=== PATIENT | female | born 1930 | race Caucasian/White ===

== ENCOUNTER → 2017-06-27 06:38 | Outpatient (CLI) | payer MEDICARE ==
[2016-05-20 10:39] VITALS: BMI 22.7
[~2017-06-27 06:38] MED LIST: MACROBID100 MG PO; SYNTHROID25 MCG PO
== END | disposition home or self-care (01) ==
LOC: D.CT 06:38
DX: Z02.83 Encounter for blood-alcohol and blood-drug test (principal)

== ENCOUNTER 2018-06-07 15:23 | Inpatient (IN) | payer MEDICARE ==
[~2018-06-07] VITALS: Ht 165.1 cm; Wt 48.5 kg
--- NOTE | ~2018-06-07 | MORECARE ---
CASE MANAGEMENT DISCHARGE SUMMARY PATIENT: NIKKI MADRID UNIT: [id number] ADM DATE: 06/08/18 AGE: 87 : [birth year] SEX: F ROOM/BED: D.[facility] AUTHOR: TE SILVA PHYSICIAN: REFERRING PHYSICIAN: MIRIAM VILLA MD DATE OF SERVICE: 06/09/18 Discharge Plan Patient Name: NIKKI MADRID Facility: [facility]:[place] : 1930 Planned Disposition: Inpatient Rehab Anticipated Discharge Date: Discharge Date: Expected LOS: Initial Reviewer: [email or web address] Initial Review Date: 06/07/2018 Generated: 06/09/18 12:48 pm Patient Name: NIKKI MADRID Page 84550 at 1148 All edits/amendments must be made on the electronic document DICTATION DATE: 06/09/18 1148 VISUAL DISPLAY ASSOCIATE: ROSSANA 06/09/18 1148 RPT#: [id number] DC DATE: STATUS: ADM IN [address] [place] [address] END OF REPORT
--- NOTE | ~2018-06-07 | MORECARE ---
CASE MANAGEMENT DISCHARGE SUMMARY PATIENT: NIKKI MADRID UNIT: [id number] ADM DATE: 06/08/18 AGE: 87 : [birth year] SEX: F ROOM/BED: D.2211 AUTHOR: TE SILVA PHYSICIAN: REFERRING PHYSICIAN: MIRIAM VILLA MD DATE OF SERVICE: 06/09/18 Discharge Plan Patient Name: NIKKI MADRID Facility: [facility]:[place] : 1930 Planned Disposition: Inpatient Rehab Anticipated Discharge Date: Discharge Date: Expected LOS: Initial Reviewer: [email or web address] Initial Review Date: 06/07/2018 Generated: 06/09/18 12:56 pm Comments DCP- Discharge Planning Updated by [email or web address]: Carrie Gomez on 06/09/18 10:[address] Patient Name: NIKKI MADRID Admission Status: ER Accout number: [id number] Admission Date: 06-08-2018 : 1930 Admission Diagnosis:DISP FX OF LATERAL CONDYLE OF LEFT FEMUR, INIT FOR CLOS Attending: MIRIAM VILLA Current LOS: 1 Anticipated DC Date: Planned Disposition: Inpatient Rehab Primary Insurance: MEDICARE A & B Discharge Planning Comments: CM met with patient to assess discharge planning needs. Patient lives with her brother (who is in the hospital at this time) She states that she he cooks her meals and grocery shops for her. He also takes her to her drs appts. She does have senior helpers who come every Tuesday and help her with showering. She plans to go to inpatient rehab today. There are 3 steps to enter her home. She has a walker, wheelchair and a shower chair at home. CM will continue to follow and assist with dc planning as needed. I spoke with Beatris with Inpatient rehab. She stated that they will accept her today, if ok my MD. Patient will need to be admitted by 1400 today to go to inpatient rehab. Automatic Presser: Carrie Gomez DCPIA - Discharge Planning Initial Assessment Updated by [email or web address]: Carrie Gomez on 06/09/18 11:49 am * Is the patient Alert and Oriented? Yes * PCP PATRICK * Pharmacy [facility] * Preadmission Environment Home with Family * ADLs Partial Dependent * Partial ADLs (Assistance needed) Bathing Medication Management * Equipment Rolling Walker Shower Chair Walker Wheelchair * List name and contact numbers for known caregivers / representatives who currently or will assist patient after discharge: DEEPIKA TORREZ (BROTHER) [phone] * Verbal permission to speak to the caregivers and representatives has been obtained from the patient. N/A * Community resources currently utilized [employer] * Please name any agencies selected above. [facility] COMES EVERY TUESDAY TO SHOWER PATIENT * Additional services required to return to the preadmission environment? Yes * Can the patient safely return to the preadmission environment? No * Has this patient been hospitalized within the prior 30 days at any hospital? No Last DP export: 06/09/18 10:48 Patient Name: NIKKI MADRID Page 44805 at 1156 All edits/amendments must be made on the electronic document DICTATION DATE: 06/09/18 1156 SUPERVISOR FINISH END: ROSSANA 06/09/18 1156 RPT#: [id number] DC DATE: STATUS: ADM IN [facility] [address] [place] [address] END OF REPORT
--- NOTE | ~2018-06-07 | MORECARE ---
CASE MANAGEMENT DISCHARGE SUMMARY PATIENT: NIKKI MADRID UNIT: [id number] ADM DATE: 06/08/18 AGE: 87 : [birth year] SEX: F ROOM/BED: D.2211 AUTHOR: TE SILVA PHYSICIAN: REFERRING PHYSICIAN: MIRIAM VILLA MD DATE OF SERVICE: 06/12/18 Discharge Plan Patient Name: NIKKI MADRID Facility: [facility]:[place] : 1930 Planned Disposition: Inpatient Rehab Anticipated Discharge Date: Discharge Date: 06/09/2018 Expected LOS: 0 Initial Reviewer: [email or web address] Initial Review Date: 06/07/2018 Generated: 06/12/18 9:10 am Comments DCP- Discharge Planning Updated by [email or web address]: Carrie Gomez on 06/09/18 10:[address] Patient Name: NIKKI MADRID Admission Status: ER Accout number: [id number] Admission Date: 06-08-2018 : 1930 Admission Diagnosis:DISP FX OF LATERAL CONDYLE OF LEFT FEMUR, INIT FOR CLOS Attending: MIRIAM VILLA Current LOS: 1 Anticipated DC Date: Planned Disposition: Inpatient Rehab Primary Insurance: MEDICARE A & B Discharge Planning Comments: CM met with patient to assess discharge planning needs. Patient lives with her brother (who is in the hospital at this time) She states that she he cooks her meals and grocery shops for her. He also takes her to her drs appts. She does have senior helpers who come every Tuesday and help her with showering. She plans to go to inpatient rehab today. There are 3 steps to enter her home. She has a walker, wheelchair and a shower chair at home. CM will continue to follow and assist with dc planning as needed. I spoke with Beatris with Inpatient rehab. She stated that they will accept her today, if ok my MD. Patient will need to be admitted by 1400 today to go to inpatient rehab. Meat Team Lead: Carrie Gomez DCPIA - Discharge Planning Initial Assessment Updated by [email or web address]: Carrie Gomez on 06/09/18 11:49 am * Is the patient Alert and Oriented? Yes * PCP PATRICK * Pharmacy [facility] * Preadmission Environment Home with Family * ADLs Partial Dependent * Partial ADLs (Assistance needed) Bathing Medication Management * Equipment Rolling Walker Shower Chair Walker Wheelchair * List name and contact numbers for known caregivers / representatives who currently or will assist patient after discharge: DEEPIKA TORREZ (BROTHER) [phone] * Verbal permission to speak to the caregivers and representatives has been obtained from the patient. N/A * Community resources currently utilized [employer] [facility] * Please name any agencies selected above. [facility] COMES EVERY TUESDAY TO SHOWER PATIENT * Additional services required to return to the preadmission environment? Yes * Can the patient safely return to the preadmission environment? No * Has this patient been hospitalized within the prior 30 days at any hospital? No Last DP export: 06/09/18 10:56 Patient Name: NIKKI MADRID Page 54859 at 0810 All edits/amendments must be made on the electronic document DICTATION DATE: 06/12/18808 HTML DEVELOPER: ROSSANA 06/12/18808 RPT#: [id number] DC DATE:06/09/18 STATUS: DIS IN [facility] [address] [place] [address] END OF REPORT
[2018-06-07 19:04] LABS: ALBUMIN 3.7 g/dL (3.4-5.0); ANION GAP 11.7 mmol/L (8-16); BILIRUBIN - TOTAL 0.72 mg/dL (0.2-1.3); CALCIUM 9.1 mg/dL (8.5-10.1); CARBON DIOXIDE 28.8 mmol/L (21.0-32.0); CREATININE - SERUM 0.8 mg/dL (0.6-1.3); POTASSIUM - SERUM 4.5 mmol/L (3.5-5.1); PROTEIN - SERUM 7.5 g/dL (6.4-8.2)
[2018-06-07 19:07] LABS: BASOPHILS 0.1 % (0-2); EOSINOPHILS 0.2 % (0-7); HEMATOCRIT 42.2 % (36.0-48.0); IMMATURE GRANULOCYTES 0.3 % (0-5); LYMPHOCYTES 7.9 % (15-50); MCH 29.2 pg (26.0-34.0); MCHC 33.2 g/dL (31.0-37.0); MCV 87.9 fL (80.0-100.0); MEAN PLATELET VOLUME 10.5 fL (7.4-10.4); MONOCYTES 8.8 % (2-11); NEUTROPHILS 82.7 % (40-80); PLATELET COUNT 197 10x3/uL (130-400); RDW 13.9 % (11.5-14.5)
[2018-06-07 21:47] VITALS: BP 145/75
[2018-06-07 23:41] VITALS: BP 145/75; BMI 17.8
[2018-06-08 05:11] VITALS: BP 163/70
[2018-06-08 06:18] LABS: BASOPHILS 0.2 % (0-2); HEMATOCRIT 37.7 % (36.0-48.0); HEMOGLOBIN 12.3 g/dL (12-16); IMMATURE GRANULOCYTES 0.2 % (0-5); LYMPHOCYTES 12.3 % (15-50); MCH 29.1 pg (26.0-34.0); MCHC 32.6 g/dL (31.0-37.0); MCV 89.1 fL (80.0-100.0); MEAN PLATELET VOLUME 10.8 fL (7.4-10.4); MONOCYTES 12.8 % (2-11); NEUTROPHILS 73.5 % (40-80); PLATELET COUNT 163 10x3/uL (130-400); RBC 4.23 10x6/uL (4.00-5.40); RDW 14.2 % (11.5-14.5)
[2018-06-08 06:28] LABS: WBC 9.7 10x3/uL (4.8-10.8)
[2018-06-08 07:06] LABS: ALBUMIN 3.1 g/dL (3.4-5.0); ALKALINE PHOSPHATASE 86 U/L (46-116); ALT (SGPT) 23 U/L (10-68); BILIRUBIN - TOTAL 0.73 mg/dL (0.2-1.3); CALC OSMOLALITY 285 mosm/kg (275-300); CALCIUM 8.6 mg/dL (8.5-10.1); CARBON DIOXIDE 25.1 mmol/L (21.0-32.0); CHLORIDE - SERUM 107 mmol/L (98-107); CREATININE - SERUM 0.7 mg/dL (0.6-1.3); GLUCOSE 85 mg/dL (74-106); POTASSIUM - SERUM 3.9 mmol/L (3.5-5.1); PROTEIN - SERUM 6.4 g/dL (6.4-8.2); SODIUM 142 mmol/L (136-145); UREA NITROGEN 25 mg/dL (7-18); eGFR NON AFRICAN AMERICAN 83 mL/min (90-120)
[2018-06-08 09:10] VITALS: BP 170/86
[2018-06-08 10:09] VITALS: BMI 17.8
[2018-06-08 10:26] VITALS: Ht 165.1 cm; Wt 48.5 kg
[2018-06-08 12:45] VITALS: BP 166/70
[2018-06-08 16:45] VITALS: BP 149/73
[2018-06-08 21:17] VITALS: BP 141/58
[2018-06-09 05:01] VITALS: BP 112/83
[2018-06-09 08:43] VITALS: BP 168/85
[2018-06-09] MEDS ORDERED: ZOFRAN ODT4 MG/UDTAB PO (12:00)
[2018-06-09] MEDS ORDERED: HYDROCODON-ACE1 EAC7 PO (12:00)
[2018-06-09 12:30] VITALS: BP 183/83
== END 2018-06-09 14:34 | DRG 534 ==
LOC: D.ER 15:23 → D.EDHOLD 17:50 → OBSVTIME 17:51 → D.MS 19:57
PROVIDERS: Family Medicine
DX: S72.422A Displaced fracture of lateral condyle of left femur, initial encounter for closed fracture (principal); N39.0 Urinary tract infection, site not specified; W18.30XA Fall on same level, unspecified, initial encounter; E03.9 Hypothyroidism, unspecified; R01.1 Cardiac murmur, unspecified; Z87.891 Personal history of nicotine dependence

== ENCOUNTER 2018-06-09 13:55 | Inpatient (IN) | payer MEDICARE ==
[~2018-06-09] VITALS: Ht 165.1 cm; Wt 47.6 kg
--- NOTE | ~2018-06-09 | RHP ---
PATIENT: NIKKI MADRID MEDICAL RECORD: [id number] ACCOUNT: [id number] LOCATION:[facility] : [birth year] ADMISSION DATE: 06/09/18 REHABILITATION HISTORY AND PHYSICAL EXAMINATION POST ADMISSION PHYSICIAN EXAMINATION POST-ADMISSION PHYSICAL EXAMINATION AND HISTORY AND PHYSICAL DATE OF ADMISSION: 06/09/2018 ADMITTING DIAGNOSIS: Fracture in lateral aspect of distal femoral metaphysis. HISTORY OF PRESENT ILLNESS: The patient is a very friendly elderly 87-year-old female patient, who presents secondary to an orthopedic condition of fracture in the left femur. The patient apparently arrived in the Emergency Room on 06/07 complaining of left knee pain that occurred on 06/06 while trying to help her brother who had fallen. The patient actually fell and injured her left knee. She denies any other injuries such as a head injury, headache, hip or other type of joint pain. The patient accidentally fell and injured her left knee. CT showed a fracture in the lateral aspect of the distal femoral metaphysis, degenerative changes, a small suprapatellar effusion. She was admitted for orthopedic surgery. Ortho felt that she did not require any type of operative intervention at this time as it would be difficult for her to have any type of surgery with her age. She has been fitted with a hinged knee brace, set at 0 and pursue early mobilization with physical therapy. Previously, she lived with her brother who is also in the hospital at this time. States that she is independent for most ADLs and mobility, but he cooks her meals and grocery shops for her. He also takes her to her doctor's appointment. She does have senior helpers who come Tuesday and help her with showering. There are 3 steps to get into her house. She has a walker, wheelchair, and shower chair at home. Currently, she is mod assist to max assist for ADLs and mobility. She has limited range of motion secondary to the hinged brace. She is moderate assist for sit to stand and bed to chair. She has poor balance. Barriers to discharge include a recent fall, cardiac monitoring, her brother being hospitalized. She is underweight and has inadequate calorie and protein malnutrition. She will definitely benefit from a nutritional consult during her stay. Comorbidities include small left suprapatellar effusion, closed fracture of the left distal femur, underweight with a BMI of 17.8, osteopenia, hypothyroidism, cardiac murmur, acute UTI, injury to the left knee, pain in the left knee, and frequent falls. PAST MEDICAL HISTORY: Significant for nothing really substantial. PAST SURGICAL HISTORY: None. ALLERGIES: No known drug allergies. CURRENT MEDICATIONS: Only include Zofran 4 mg every 6 hours p.r.n. She is on [place] 5/325 as needed for pain. She is on Synthroid 25 mcg daily and MiraLax 17 grams in 8 ounces of water daily. HABITS: No current alcohol or tobacco use. FAMILY HISTORY: Noncontributory. HISTORY AND PHYSICAL [id number] NIKKI MADRID SOCIAL HISTORY: The patient hopes to return back home and get back to her prior level of functioning and live with her brother. REVIEW OF SYSTEMS: GENERAL: Does complain of some weakness. HEENT: Denies cold, cough, or congestion. CARDIOVASCULAR: Denies chest pain. PHYSICAL EXAMINATION: VITAL SIGNS: Stable, afebrile. GENERAL: A very thin frail female, in no acute distress upon exam. HEENT: Normocephalic and atraumatic. Mucosa moist. NECK: Supple. No lymphadenopathy. LUNGS: Clear at this time. HEART: Regular rate and rhythm. ABDOMEN: Benign. EXTREMITIES: No clubbing, cyanosis, or edema. No obvious swelling to her knee region. She does have a brace on at this time. NEUROLOGIC: She does have noted weakness. LABORATORY DATA: White count of 6.7, H&H of 11 and 34, and platelet count is 141. Her sodium is 144, potassium 3.5, BUN and creatinine of 18 and 0.5, and blood sugar is noted to be 99. Her admit UA did show positive nitrites, leukocyte esterase was 1+, greater than 50 white blood cells on her UA. ASSESSMENT: This is an 87-year-old female patient admitted to the rehab with a working diagnosis of left distal femur fracture. The patient has potential to make improvement. We will institute the following multidisciplinary therapies including, not limited to, physical, occupational, respiratory, speech, nutritional services, prosthetics and orthotics. Given her complex medical condition and risks for more complications, rehabilitation services cannot be provided at a low level of care such as long term facility. PLAN: 1. Admit to [facility] for intensive inpatient therapy to include the following disciplines: A. Physical therapy to improve gait, all transfer skills and bed mobility to a modified independent level. B. Occupational therapy to improve activities of daily living to a modified independent level. C. Case management to assist with discharge planning and placement options. D. Nutrition to assist with nutritional needs. E. Rehabilitation nursing to assist in monitoring the patient's underlying medical conditions and to assist with any type of bowel or bladder management. 2. The patient's current medications and medical care will be continued. 3. The patient will be placed on standard fall precautions. 4. The patient's estimated length of stay is approximately 7-10 days. 5. We will discuss this patient during care team staff meeting this week. I am going to go ahead and treat her UA with some Levaquin. I am going to probably follow her up in the a.m. TRANSINT:[id number] Voice Confirmation ID: [id number] DOCUMENT ID: [id number] HISTORY AND PHYSICAL [id number] NIKKI MADRID notes whether there has been none or any medical/functional change since admission: - No change since prescreen. HARJEET attests patient continues to be appropriate for IRF: - Continues to be appropriate. KELLIE LOMBARDO MD at 1916 CC: [id number] DICTATION DATE: 06/10/18 1036 CLINICAL TRIALS NURSE: 06/10/18 1315 DIS IN 06/15/18 [facility] [address] [place] [address]
[~2018-06-09 13:55] MED LIST changes: +HYDROCODON-ACE1 EAC7 PO; +ZOFRAN ODT4 MG/UDTAB PO
[2018-06-09 15:06] VITALS: BP 169/78; BMI 17.5
[2018-06-09 18:58] LABS: APPEARANCE HAZY (CLEAR); COLOR YELLOW (YELLOW)
[2018-06-09 18:59] LABS: BACTERIA MANY /hpf (NONE SEEN); BILIRUBIN NEGATIVE (NEGATIVE); EPITHELIAL CELLS OCC /hpf (0-5); GLUCOSE NEGATIVE (NEGATIVE); KETONE SMALL mg/dL (NEGATIVE); NITRITE POSITIVE (NEGATIVE); PROTEIN NEGATIVE (NEGATIVE); RED CELLS - URINE 0-5 /hpf (0-5); UROBILINOGEN NORMAL (NORMAL); WHITE CELLS - URINE >50 /hpf (0-5)
[2018-06-09 19:00] VITALS: BP 185/80
[2018-06-10 06:57] LABS: BASOPHILS 0.2 % (0-2); HEMATOCRIT 33.6 % (36.0-48.0); HEMOGLOBIN 10.8 g/dL (12-16); IMMATURE GRANULOCYTES 0.2 % (0-5); LYMPHOCYTES 22.4 % (15-50); MCH 28.5 pg (26.0-34.0); MCHC 32.1 g/dL (31.0-37.0); MCV 88.7 fL (80.0-100.0); MEAN PLATELET VOLUME 10.1 fL (7.4-10.4); MONOCYTES 13.7 % (2-11); NEUTROPHILS 60.5 % (40-80); PLATELET COUNT 141 10x3/uL (130-400); RBC 3.79 10x6/uL (4.00-5.40); WBC 6.7 10x3/uL (4.8-10.8)
[2018-06-10 07:14] LABS: CALC OSMOLALITY 288 mosm/kg (275-300); CALCIUM 8.3 mg/dL (8.5-10.1); CARBON DIOXIDE 25.3 mmol/L (21.0-32.0); CHLORIDE - SERUM 109 mmol/L (98-107); CREATININE - SERUM 0.5 mg/dL (0.6-1.3); GLUCOSE 99 mg/dL (74-106); POTASSIUM - SERUM 3.5 mmol/L (3.5-5.1); SODIUM 144 mmol/L (136-145); UREA NITROGEN 18 mg/dL (7-18); eGFR NON AFRICAN AMERICAN > 90 mL/min (90-120)
[2018-06-10 10:55] VITALS: Ht 165.1 cm; Wt 47.6 kg
[2018-06-10 19:50] VITALS: BP 114/69
[2018-06-11 08:57] VITALS: BP 175/86
[2018-06-11 20:11] VITALS: BP 170/97
[2018-06-12 05:46] LABS: BASOPHILS 0.3 % (0-2); EOSINOPHILS 2.8 % (0-7); HEMATOCRIT 34.6 % (36.0-48.0); HEMOGLOBIN 11.1 g/dL (12-16); IMMATURE GRANULOCYTES 0.3 % (0-5); LYMPHOCYTES 31.1 % (15-50); MCH 28.5 pg (26.0-34.0); MCHC 32.1 g/dL (31.0-37.0); MCV 88.9 fL (80.0-100.0); MEAN PLATELET VOLUME 10.7 fL (7.4-10.4); MONOCYTES 10.8 % (2-11); NEUTROPHILS 54.7 % (40-80); RBC 3.89 10x6/uL (4.00-5.40); RDW 14.1 % (11.5-14.5); WBC 6.8 10x3/uL (4.8-10.8)
[2018-06-12 05:47] LABS: PLATELET COUNT 212 10x3/uL (130-400)
[2018-06-12 06:05] LABS: CALC OSMOLALITY 291 mosm/kg (275-300); CALCIUM 8.6 mg/dL (8.5-10.1); CARBON DIOXIDE 26.9 mmol/L (21.0-32.0); CHLORIDE - SERUM 109 mmol/L (98-107); CREATININE - SERUM 0.5 mg/dL (0.6-1.3); GLUCOSE 102 mg/dL (74-106); POTASSIUM - SERUM 3.7 mmol/L (3.5-5.1); SODIUM 144 mmol/L (136-145); eGFR NON AFRICAN AMERICAN > 90 mL/min (90-120)
[2018-06-12 06:07] LABS: UREA NITROGEN 26 mg/dL (7-18)
[2018-06-12 08:00] VITALS: BP 160/75
[2018-06-12 21:20] VITALS: BP 152/74
[2018-06-13 19:22] VITALS: BP 144/64
[2018-06-14 07:19] LABS: BASOPHILS 0.5 % (0-2); EOSINOPHILS 3.2 % (0-7); HEMATOCRIT 33.6 % (36.0-48.0); HEMOGLOBIN 10.7 g/dL (12-16); IMMATURE GRANULOCYTES 0.2 % (0-5); LYMPHOCYTES 28.5 % (15-50); MCH 28.7 pg (26.0-34.0); MCHC 31.8 g/dL (31.0-37.0); MCV 90.1 fL (80.0-100.0); MEAN PLATELET VOLUME 10.5 fL (7.4-10.4); MONOCYTES 12.3 % (2-11); NEUTROPHILS 55.3 % (40-80); PLATELET COUNT 229 10x3/uL (130-400); RBC 3.73 10x6/uL (4.00-5.40); RDW 14.5 % (11.5-14.5); WBC 6.2 10x3/uL (4.8-10.8)
[2018-06-14 07:35] LABS: CALC OSMOLALITY 295 mosm/kg (275-300); CALCIUM 8.5 mg/dL (8.5-10.1); CARBON DIOXIDE 29.7 mmol/L (21.0-32.0); CHLORIDE - SERUM 110 mmol/L (98-107); CREATININE - SERUM 0.6 mg/dL (0.6-1.3); GLUCOSE 92 mg/dL (74-106); POTASSIUM - SERUM 3.7 mmol/L (3.5-5.1); SODIUM 146 mmol/L (136-145); UREA NITROGEN 26 mg/dL (7-18); eGFR NON AFRICAN AMERICAN > 90 mL/min (90-120)
[2018-06-14 19:00] VITALS: BP 129/64
[2018-06-15 08:00] VITALS: BP 163/71
== END 2018-06-15 13:05 | DRG 560 ==
LOC: D.REHAB 13:55
PROVIDERS: Emergency Medicine
DX: S72.492D Other fracture of lower end of left femur, subsequent encounter for closed fracture with routine healing (principal); E46 Unspecified protein-calorie malnutrition; Z68.1 Body mass index [BMI] 19.9 or less, adult; N39.0 Urinary tract infection, site not specified; W19.XXXD Unspecified fall, subsequent encounter; Z66 Do not resuscitate; M85.80 Other specified disorders of bone density and structure, unspecified site; E03.9 Hypothyroidism, unspecified; R01.1 Cardiac murmur, unspecified; M25.562 Pain in left knee; M25.48 Effusion, other site

== ENCOUNTER → 2018-06-29 14:00 | Outpatient (CLI) | payer MEDICARE ==
[2018-06-10 10:55] VITALS: BMI 17.4
== END | disposition home or self-care (01) ==
LOC: D.CT 06-27 13:30
DX: R91.1 Solitary pulmonary nodule (principal)

== ENCOUNTER → 2018-09-25 09:56 | Outpatient (CLI) | payer MEDICARE ==
[2018-06-10 10:55] VITALS: BMI 17.4
== END | disposition home or self-care (01) ==
LOC: D.MRI 09:56
DX: M54.6 Pain in thoracic spine (principal)

== ENCOUNTER 2018-11-06 17:57 | Inpatient (IN) | payer MEDICARE ==
[~2018-11-06] VITALS: Ht 165.1 cm; Wt 52.6 kg
--- NOTE | ~2018-11-06 | HEMODYNAMI ---
PATIENT:NIKKI MADRID MEDICAL RECORD: [id number] : [birth year] LOCATION:[facility] ADMISSION DATE: 11/07/18 Generatedon:11/14/201816:11 Patient name: NIKKI MADRID Patient #: [id number] SSN: : 1930 Date of study: 11/14/2018 Page: Of Hemodynamic Procedure Report Patient Data Patient Demographics Procedure consent was obtained First Name: NIKKI Gender: Female Last Name: JULIUS : 1930 Patient #: [id number] Age: 88 year(s) Race: Unknown Additional ID: [id number] Contact details Address: [address] [place] [address] [address]REET State: [place] City: [place] Zip code: [address] Admission Admission Data Admission Date: 11/07/2018 Admission Time: 16:21 Room #: D.2211 Procedure Procedure Types Cath Procedure Peripheral Cath Diagnostic Procedure Kyphoplasty Kyphoplasty Thoracic Kyphoplasty Lumbar Procedure Description Procedure Date Procedure Date: 11/14/2018 Procedure Start Time: 15:01 Procedure Staff Name Function Aldo Bailey MD Performing Physician Edenilson Andujar RT Monitor Leeanne Barneyub Selena Vargas RN Nurse Annika Head CRNA Additional personnel Procedure Data Cath Procedure Fluoroscopy Diagnostic fluoroscopy Total fluoroscopy Time: time: 14.8 min 14.8 min Diagnostic fluoroscopy Total fluoroscopy dose: dose: 1101 mGy 1101 mGy Procedure Medications Medication Administration Route Dosage Heparin Flush Bag added to field 1 bags (1000units/500ml NS) Lidocaine 1% added to field 20 Hemodynamics Rest Heart Rate: 61 (bpm) Snapshots Pre Cath Intra NCS Post Cath Vital Signs Time Heart Resp SPO2 etCO2 NIBP (mmHg) Rhythm Pain Sedation Rate (ipm) (%) (mmHg) Status Level (bpm) 14:48:09 66 23 96 11.3 111/61(94) NSR 0 (11) 10(A) , No pain 14:53:08 61 15 100 12.1 Measuring NSR 0 (11) 8(A) , No pain 14:53:14 62 15 100 12.9 141/64(92) NSR 0 (11) 8(A) , No pain 14:57:28 66 17 100 11.3 140/72(89) NSR 0 (11) 8(A) , No pain 15:01:42 61 17 100 18.9 149/71(95) NSR 0 (11) 10(A) , No pain 15:06:02 64 17 100 0.7 156/66(98) NSR 0 (11) 10(A) , No pain 15:10:14 61 15 100 3 131/59(85) NSR 0 (11) 10(A) , No pain 15:14:28 63 18 100 0.7 125/64(88) NSR 0 (11) 10(A) , No pain 15:19:27 62 16 100 4.5 Measuring NSR 0 (11) 10(A) , No pain 15:19:43 61 16 100 8.3 138/65(87) NSR 0 (11) 10(A) , No pain 15:23:55 53 21 100 12.8 136/70(87) NSR 0 (11) 10(A) , No pain 15:28:15 53 14 100 0 112/52(94) NSR 0 (11) 10(A) , No pain 15:33:14 51 13 100 0 Measuring NSR 0 (11) 10(A) , No pain 15:33:58 52 13 100 0 115/51(95) NSR 0 (11) 10(A) , No pain 15:38:56 49 15 100 0 Measuring NSR 0 (11) 10(A) , No pain 15:39:00 52 15 100 0 138/64(103) NSR 0 (11) 10(A) , No pain 15:43:59 49 16 100 1.5 Measuring NSR 0 (11) 10(A) , No pain 15:44:26 51 15 100 1.5 157/66(88) NSR 0 (11) 10(A) , No pain 15:48:48 52 15 100 0 153/66(84) NSR 0 (11) 10(A) , No pain 15:53:10 50 14 100 1.5 152/64(128) NSR 0 (11) 10(A) , No pain 15:57:30 49 12 100 0 135/71(93) NSR 0 (11) 10(A) , No pain 16:01:44 47 12 100 1.5 147/59(124) NSR 0 (11) 10(A) , No pain 16:06:43 50 18 100 16.6 Measuring NSR 0 (11) 10(A) , No pain 16:06:49 100 12.1 158/70(113) NSR 0 (11) 10(A) , No pain 16:10:49 12.1 No Cuff NSR 0 (11) 10(A) , No pain Medications Time Medication Route Dose Verified Delivered Reason Notes Effe ctiveness by by 15:00:34 Heparin Flush added 1 Aldo Carlson used for Bag to bags Lynn Bailey MD procedure (1000units/500ml field SERRATO NS) 15:00:48 Lidocaine 1% added 20ml Aldo Carlson for local to vial Lynn Bailey MD anesthetic field SERRATO Procedure Log Time Note 14:30:12 Annika Head CRNA present and monitoring patient for TIVA. 14:30:24 Edenilson Andujar RT (R) (CV) sent for patient. Start room use. 14:30:31 Time tracking: Regular hours (M-F 7:00 - 5:00) 14:30:37 Plan of Care:Hemodynamics will remain stable., Cardiac rhythm will remain stable., Comfort level will be maintained., Respiratory function will remain adequate., Patient/ family verbilizes understanding of procedure., Procedure tolerated without complication., Recovers from procedure without complications.. 14:31:00 Patient received from Med/Surg to IR Alert and oriented. Tansferred to table in Prone position. 14:31:27 Correct patient and procedure confirmed by team. 14:31:29 Signed procedure consent form obtained from patient. 14:31:30 Full Disclosure recording started 14:31:31 - 14:31:39 H&P Date Dictated: 11/14/2018 Within 30 days and on chart.. 14:31:39 Pre-procedure instructions explained to patient. 14:31:40 Pre-op teaching completed and patient verbalized understanding. 14:31:43 - 14:31:59 SEE ANESTHESIA NOTE FOR PRE PROCEDURE TIVA 14:47:03 ECG and BP/O2 sat monitors applied to patient. 14:47:04 Vital chart was started 14:47:05 Baseline sample Acquired. 14:47:09 - 14:52:31 Baseline sample Acquired. 14:56:06 - 14:56:35 SEE ANESTHESIA NOTE FOR PRE PROCDURE TIVA 14:56:37 - 14:56:48 Lumbar area was prepped with dura-prep and draped in sterile fashion 14:56:54 Thoracic area was prepped with dura-prep and draped in sterile fashion 14:56:55 Alarms reviewed by Judd Lara 14:56:55 Sharps counted by scrub and verified by R.N. 15:00:34 Heparin Flush Bag (1000units/500ml NS) 1 bags added to field was administered by Aldo Bailey MD; used for procedure; 15:00:46 Physician arrived 15:00:47 --------ALL STOP TIME OUT------ 15:00:48 Lidocaine 1% 20ml vial added to field was administered by Aldo Bailey MD; for local anesthetic; 15:00:49 Final Timeout: patient, procedure, and site verified with staff and physician. All members of the team are in agreement. 15:00:52 Lumbar site verified by team. 15:00:56 Thoracic site verified by team. 15:01:01 Fire Safety Assessment: A--An alcohol-based skin anteseptic being used preoperatively., C--Open oxygen or nitrous oxide is being used. 15:01:06 Sedation plan: TIVA Medication:Propofol 15:01:23 Procedure started. 15:01:38 Local anesthetic to Thoracic T-10area with Lidocaine 1% by Aldo Bailey MD.INITIAL ACCESS ONLY 15:03:27 [place] BONE CEMENT WITH NEEDLE AUTOPLEX Kit opened to sterile field. 15:03:56 YAIR BNCMNT CURV BALLOON [id number] opened to sterile field. 15:03:57 YAIR BNCMNT CURV BALLOON [id number] opened to sterile field. 15:03:57 Yair BONE BX 11GA kit opened to sterile field. 15:04:58 Procedure type changed to Cath procedure, Peripheral Cath Diagnostic Procedure, Kyphoplasty, Kyphoplasty Thoracic, Kyphoplasty Lumbar 15:05:12 Use device set IR Diagnostic 15:05:13 Tegaderm 4 x 4 (1626W) opened to sterile field. 15:05:14 Sterile Angiographic Pack opened to sterile field. 15:05:15 Bag Decanter (2002S) opened to sterile field. 15:05:23 Tegaderm 4 x 4 (1626W) opened to sterile field. 15:23:24 Local anesthetic to Lumbar L-1 area with Lidocaine 1% by Aldo Bailey MD.ADDITIONAL ACCESS 16:01:26 Procedure ended.(Physican Out) 16:01:58 Fluoroscopy time 14.80 minutes. 16:02:05 Fluoroscopy dose: 1101 mGy 16:02:05 Flurop Dose total: 1101 16:02:25 SEE ANESTHESIA NOTE FOR POST PROCEDURE TIVA 16:11:08 Report given to Med/Surg. 16:11:11 Patient transfered to Med/Surg with Bed. 16:11:50 Vital chart was stopped Device Usage Item Name Manufacture Quantity Catalog Hospital Part Current Minim al Lot# / Number Charge Number Stock Stock Serial# Code [place] BONE [place] 1 [id number] 5 [id number] CEMENT WITH NEEDLE AUTOPLEX Kit YAIR Yair 2 [id number] [id number] [id number] 1 BNCMNT CURV BALLOON 21D50DX [place] BONE Yair 1 [id number] [id number] 199905 [id number] 5 BX 11GA kit Tegaderm 4 x 3M 2 1626W [id number] 5 4 (1626W) Sterile Cardinal 1 [id number] 5 Angiographic Health Pack Bag Decanter Microtek 1 2001S [id number] 93515 [id number] 5 (2001S) [employer] Signature Audit [place] Stage Time Signature Unsigned Intra-Procedure 11/14/2018 Edenilson 4:11:47 PM Pratima RT (R) (CV) Signatures Monitor : Edenilson Signature : Pratima RT Date : Time : [address] [address]
--- NOTE | 2018-11-06 19:02 | NUR ---
HAND-OFF REPORT GIVEN TO FAITH ALLAN
--- NOTE | 2018-11-06 19:05 | NUR ---
ASSUMED PATIENT CARE. SHE IS AWAKE AND ORIENTED TO PERSON, PLACE, AND SELF. SHE STATES SINCE SINCE SHE HAD A PROCEDURE DONE SHE HAS EXCRUCIATING PAIN WHEN SHE TRIES TO SIT UP FROM THE BED AND WALK. PAIN IS RELIEVED WHEN SHE IS LYING FLAT OR ON HER SIDE. PATIENT APPEARS COMFORTABLE BUT WHEN MOVED UP TO THE [facility] SHE YELLS OUT IN PAIN.
[2018-11-06 19:32] VITALS: BP 184/91
[2018-11-06 20:00] VITALS: BP 192/125
--- NOTE | 2018-11-06 20:00 | NUR ---
PATIENT SMELLS OF URINE, CHANGED HER BRIEF, AND CLEANED HER MONI AREA. SHE HAS STOOL ALONG HER MONI AREA. THE WET SHEETS REMOVED AND CLEAN PADS PLACED UNDER. SHE IS ADUSTED TO HOB AND GIVEN BLANKETS. FAMILY STATES HE IS LEAVING AND LEFT HIS NUMBER TO CALL IF PATIENT IS SENT HOME OR ADMITED. [facility] [phone]
[2018-11-06 20:37] LABS: APPEARANCE CLEAR (CLEAR); BILIRUBIN NEGATIVE (NEGATIVE); COLOR YELLOW (YELLOW); GLUCOSE NEGATIVE (NEGATIVE); KETONE MODERATE mg/dL (NEGATIVE); NITRITE NEGATIVE (NEGATIVE); PROTEIN TRACE mg/dL (NEGATIVE); SPECIFIC GRAVITY 1.015 (1.005-1.020); UROBILINOGEN NORMAL (NORMAL)
[2018-11-06 20:39] LABS: RED CELLS - URINE 0-5 /hpf (0-5); WHITE CELLS - URINE 25-50 /hpf (0-5)
[2018-11-06 20:40] LABS: BACTERIA MODERATE /hpf (NONE SEEN); EPITHELIAL CELLS 0-5 /hpf (0-5)
[2018-11-06 21:08] LABS: BASOPHILS 0.1 % (0-2); EOSINOPHILS 0.7 % (0-7); HEMATOCRIT 37.5 % (36.0-48.0); IMMATURE GRANULOCYTES 0.3 % (0-5); LYMPHOCYTES 21.3 % (15-50); MCH 27.7 pg (26.0-34.0); MCV 86.6 fL (80.0-100.0); MEAN PLATELET VOLUME 9.9 fL (7.4-10.4); MONOCYTES 11.4 % (2-11); NEUTROPHILS 66.2 % (40-80); PLATELET COUNT 194 10x3/uL (130-400); RBC 4.33 10x6/uL (4.00-5.40); RDW 15.3 % (11.5-14.5); WBC 7.3 10x3/uL (4.8-10.8)
[2018-11-06 21:28] LABS: ALBUMIN 3.2 g/dL (3.4-5.0); ALKALINE PHOSPHATASE 149 U/L (46-116); ALT (SGPT) 20 U/L (10-68); BILIRUBIN - TOTAL 0.37 mg/dL (0.2-1.3); CALC OSMOLALITY 281 mosm/kg (275-300); CALCIUM 8.4 mg/dL (8.5-10.1); CARBON DIOXIDE 29.1 mmol/L (21.0-32.0); CHLORIDE - SERUM 106 mmol/L (98-107); CREATININE - SERUM 0.6 mg/dL (0.6-1.3); GLUCOSE 97 mg/dL (74-106); POTASSIUM - SERUM 4.2 mmol/L (3.5-5.1); PROTEIN - SERUM 6.6 g/dL (6.4-8.2); SODIUM 141 mmol/L (136-145); UREA NITROGEN 14 mg/dL (7-18); eGFR NON AFRICAN AMERICAN > 90 mL/min (90-120)
[2018-11-06 21:32] VITALS: BP 184/74
[2018-11-06 22:49] VITALS: BP 120/87
--- NOTE | 2018-11-06 23:10 | NUR ---
RECEIVED PT VIA STRETCHER FROM ER WITH COMP FX OF T6 AND BACK PAIN. YELLED OUT WHEN MOVED FROM STRETCHER TO BED BUT THEN DENIED PAIN. STATES ITS ONLY WHEN SHE MOVES. INCONT OF URINE. NS @ 200 ML/HR INFUSING IN LT FOREARM WITHOUT DIFF. ALERT AND ORIENTED TO SELF AND PLACE. CONFUSED AND VERY FORGETFUL. DIFF ANSWERING QUESTIONS ABOUT HER HISTORY. STATES SHE HAS NEVER BEEN HERE BUT HAS. JO ALARM PLACED ON BED FOR PT SAFETY. RESP EVEN AND NONLABORED. BBS CTA. NO EDEMA NOTED. SR ELEVATED X3. CL IN REACH.
[2018-11-07] VITALS (7 sets, daily range): BP systolic 133–170; BP diastolic 58–81; Ht 165.1 cm; Wt 52.6 kg
--- NOTE | 2018-11-07 03:07 | NUR ---
HAS RESTED WELL SO FAR THIS SHIFT. CL IN REACH.
[2018-11-07 06:06] LABS: BASOPHILS 0.3 % (0-2); EOSINOPHILS 1.7 % (0-7); HEMATOCRIT 35.4 % (36.0-48.0); HEMOGLOBIN 11.1 g/dL (12-16); IMMATURE GRANULOCYTES 0.2 % (0-5); LYMPHOCYTES 30.1 % (15-50); MCH 27.3 pg (26.0-34.0); MCHC 31.4 g/dL (31.0-37.0); MEAN PLATELET VOLUME 10.9 fL (7.4-10.4); MONOCYTES 15.2 % (2-11); NEUTROPHILS 52.5 % (40-80); PLATELET COUNT 193 10x3/uL (130-400); RBC 4.07 10x6/uL (4.00-5.40); RDW 15.5 % (11.5-14.5); WBC 5.9 10x3/uL (4.8-10.8)
[2018-11-07 06:13] LABS: CALC OSMOLALITY 280 mosm/kg (275-300); CALCIUM 8.2 mg/dL (8.5-10.1); CARBON DIOXIDE 27.3 mmol/L (21.0-32.0); CHLORIDE - SERUM 107 mmol/L (98-107); CREATININE - SERUM 0.6 mg/dL (0.6-1.3); GLUCOSE 84 mg/dL (74-106); MAGNESIUM - SERUM 2.1 mg/dL (1.8-2.4); SODIUM 141 mmol/L (136-145); UREA NITROGEN 15 mg/dL (7-18); eGFR NON AFRICAN AMERICAN > 90 mL/min (90-120)
--- NOTE | 2018-11-07 07:30 | NUR ---
PT ASSESSMENT COMPLETE AWAKE AND ALERT ORIENTED X 3 LUNGS CLEAR BILATERALLY NO DISTRESS NOTED DENIES PAIN STATES PAIN RELEIF FROM MEDS LAST NIGHT IN ED STILL EFFECTIVE. NOTED URINARY INCONTINENCE JO MAT IN PLACE AND NON SKID SOCKS NOTED PIV PATENT TO LFA NS AT 200 ML HR WILL CONINUE PLAN OF CARE
--- NOTE | 2018-11-07 10:10 | NUR ---
Rehab Note- Acute Inpatient Rehab prescreen order received. The patient is a new admit & she continues to have an acute work up at this time. WIll follow at this time. Thank you for this referral! Tatiana Greenberg RN Clinical Liaison, [facility] Rehab
--- NOTE | 2018-11-07 12:04 | NUR ---
PT RESTING WELL IN BED NO DISTRESSNOTED PIV PATENT WITH NO REDNESS OR SWELLING NOTED DENIES COMPLAINTS OF PAIN AT THIS TIME.
--- NOTE | 2018-11-07 17:10 | NUR ---
TO MRI AT THIS TIME PRE MED FOR PAIN WITH MORPHINE 4 MG IVP PER ORDER TOLERATED WELL
--- NOTE | 2018-11-07 18:50 | NUR ---
I have reviewed this patient and I concur with the Shift Assessment completed by the Licensed Practical Nurse today this shift.
--- NOTE | 2018-11-07 19:45 | NUR ---
PT RESTING IN BED. ALERT AND ORIENTED. NO SIGNS OF DISTRESS. BREATHING EVEN AND UNLBAORED. PT STATES NO PROBLEMS AT THIS TIME. IV SITE LT FA DRESSING CLEAN DRY AND INTACT. NO SIGNS OF INFECTION. BOWEL SOUNDS ACTIVE. SOME LOWER LEG AND FEET SWELLING PRESENT. WILL CONTINUE PLAN OF CARE. CALL LIGHT IN REACH. BED LOWERED AND LOCKED. JO ALARM ON. YELLW GOWN SOCKS AND ARM BAND ON.
--- NOTE | 2018-11-08 02:52 | NUR ---
I have reviewed this patient and I concur with the Shift Assessment completed by the Licensed Practical Nurse today this shift.
[2018-11-08 04:43] VITALS: BP 173/63
[2018-11-08 05:03] LABS: BASOPHILS 0.4 % (0-2); EOSINOPHILS 2.7 % (0-7); HEMATOCRIT 32.9 % (36.0-48.0); HEMOGLOBIN 10.2 g/dL (12-16); IMMATURE GRANULOCYTES 0.4 % (0-5); LYMPHOCYTES 33.2 % (15-50); MCH 26.9 pg (26.0-34.0); MCV 86.8 fL (80.0-100.0); MEAN PLATELET VOLUME 9.9 fL (7.4-10.4); MONOCYTES 14.7 % (2-11); NEUTROPHILS 48.6 % (40-80); PLATELET COUNT 172 10x3/uL (130-400); RBC 3.79 10x6/uL (4.00-5.40); RDW 15.5 % (11.5-14.5); WBC 5.7 10x3/uL (4.8-10.8)
[2018-11-08 05:17] LABS: ALBUMIN 2.7 g/dL (3.4-5.0); ALKALINE PHOSPHATASE 122 U/L (46-116); ALT (SGPT) 15 U/L (10-68); BILIRUBIN - TOTAL 0.31 mg/dL (0.2-1.3); CALC OSMOLALITY 280 mosm/kg (275-300); CARBON DIOXIDE 23.4 mmol/L (21.0-32.0); CHLORIDE - SERUM 108 mmol/L (98-107); CREATININE - SERUM 0.6 mg/dL (0.6-1.3); GLUCOSE 89 mg/dL (74-106); POTASSIUM - SERUM 3.8 mmol/L (3.5-5.1); PROTEIN - SERUM 5.8 g/dL (6.4-8.2); SODIUM 141 mmol/L (136-145); UREA NITROGEN 14 mg/dL (7-18); eGFR NON AFRICAN AMERICAN > 90 mL/min (90-120)
[2018-11-08 08:47] VITALS: BP 153/66
[2018-11-08 12:49] VITALS: BP 197/85
--- NOTE | 2018-11-08 13:35 | NUR ---
PATIENT HAS NO CO PAIN. CONCERNED ABOUT WHY SHE IS STILL HERE IN THE HOSPITAL. REORIENTED HER TO WHY SHE IS HERE. NO NEEDS AT THIS TIME
[2018-11-08 16:48] VITALS: BP 162/54
--- NOTE | 2018-11-08 19:35 | NUR ---
PT RESTING IN BED. ALERT AND ORIENTED. NO SIGNS OF DISTRESS. BREATHING EVEN AND UNLABORED. PT STATES NO PROBLEMS AT THIS TIME. IV SITE LT FA DRESSING CLEAN DRY AND INTACT. NO SIGNS OF INFECTION. SKIN CLEAN DRY AND INTACT. BOWEL SOUNDS ACITVE. SOME LOWER LEG AND FEET SWELLING PRESENT. JO ALARM ON. BED LOWERED AND LOCKED. BED RAILS UP X3. YELLOW GOWN AND ARM BAND ON. WILL CONTINUE PLAN OF CARE. CALL LIGHT IN REACH.
[2018-11-08 21:03] VITALS: BP 165/55
[2018-11-09 00:10] VITALS: BP 190/86
[2018-11-09 04:45] VITALS: BP 114/80
[2018-11-09 06:01] LABS: BASOPHILS 0.4 % (0-2); HEMATOCRIT 34.6 % (36.0-48.0); IMMATURE GRANULOCYTES 0.2 % (0-5); LYMPHOCYTES 34.8 % (15-50); MCH 27.1 pg (26.0-34.0); MCHC 31.8 g/dL (31.0-37.0); MCV 85.2 fL (80.0-100.0); MEAN PLATELET VOLUME 10.6 fL (7.4-10.4); MONOCYTES 15.1 % (2-11); NEUTROPHILS 46.5 % (40-80); PLATELET COUNT 200 10x3/uL (130-400); RBC 4.06 10x6/uL (4.00-5.40); RDW 15.1 % (11.5-14.5); WBC 5.4 10x3/uL (4.8-10.8)
[2018-11-09 06:40] LABS: ALBUMIN 2.8 g/dL (3.4-5.0); ALKALINE PHOSPHATASE 123 U/L (46-116); ALT (SGPT) 17 U/L (10-68); BILIRUBIN - TOTAL 0.37 mg/dL (0.2-1.3); CALC OSMOLALITY 285 mosm/kg (275-300); CALCIUM 8.2 mg/dL (8.5-10.1); CARBON DIOXIDE 25.7 mmol/L (21.0-32.0); CHLORIDE - SERUM 108 mmol/L (98-107); CREATININE - SERUM 0.5 mg/dL (0.6-1.3); GLUCOSE 87 mg/dL (74-106); POTASSIUM - SERUM 3.7 mmol/L (3.5-5.1); SODIUM 144 mmol/L (136-145); UREA NITROGEN 12 mg/dL (7-18); eGFR NON AFRICAN AMERICAN > 90 mL/min (90-120)
[2018-11-09 10:08] VITALS: BP 129/69
--- NOTE | 2018-11-09 10:12 | NUR ---
Rehab Note- Has a UTI & plan to schedule kyphoplasty after UTI cleared- scheduled for possible 11/14, will continue to follow at this time. Tatiana Greenberg RN Clinical Liaison, [facility] Rehab
[2018-11-09 13:37] VITALS: BP 153/59
--- NOTE | 2018-11-09 16:17 | MORECARE ---
CASE MANAGEMENT DISCHARGE SUMMARY PATIENT: NIKKI MADRID UNIT: [id number] ADM DATE: 11/07/18 AGE: 88 : [birth year] SEX: F ROOM/BED: D.2211 AUTHOR: TE SILVA PHYSICIAN: REFERRING PHYSICIAN: ANNA NGUYEN MD DATE OF SERVICE: 11/09/18 Discharge Plan Patient Name: NIKKI MADRID Facility: [facility]:[place] : 1930 Planned Disposition: Home or Self Care Anticipated Discharge Date: Discharge Date: Expected LOS: Initial Reviewer: [id number] Initial Review Date: 11/06/2018 Generated: 11/09/18 5:17 pm Comments DCP- Discharge Planning Updated by [id number]: Carrie Gomez on 11/09/18 3:[address] Patient Name: NIKKI MADRID Admission Status: ER Accout number: [id number] Admission Date: 11-07-2018 : 1930 Admission Diagnosis: Attending: ANNA NGUYEN Current LOS: 2 Anticipated DC Date: Planned Disposition: Home or Self Care Primary Insurance: MEDICARE A & B Discharge Planning Comments: CM met with patient to assess discharge planning needs. Patient stated that she lives with her brother where she is partial independent with her care. She has Janis who comes to her home every Tad to give her baths. Her brother helps her with medication. She has a walker, wheelchair and a tub bench. She would like Santi with [employer] to take her home at discharge. CM will continue to follow and assist with DC planning needs Physician Practice Coordinator: Carrie Gomez DCPIA - Discharge Planning Initial Assessment Updated by [id number]: Carrie Gomez on 11/09/18 4:12 pm * Is the patient Alert and Oriented? Yes * How many steps to enter\exit or inside your home? * PCP Arun * Pharmacy [facility] * Preadmission Environment Home with Family * ADLs Partial Dependent * Partial ADLs (Assistance needed) Bathing Medication Management * Equipment Tub Bench Walker Wheelchair * List name and contact numbers for known caregivers / representatives who currently or will assist patient after discharge: Robin (brother) [phone] * Verbal permission to speak to the caregivers and representatives has been obtained from the patient. No * Community resources currently utilized None * Additional services required to return to the preadmission environment? No * Can the patient safely return to the preadmission environment? Yes * Has this patient been hospitalized within the prior 30 days at any hospital? No Patient Name: NIKKI MADRID Page [phone] at 1617 All edits/amendments must be made on the electronic document DICTATION DATE: 11/09/181616 CARE REP: ROSSANA 11/09/181616 RPT#: [id number] DC DATE: STATUS: ADM IN [facility] [address] [place] [address] END OF REPORT
[2018-11-09 17:26] VITALS: BP 154/62
--- NOTE | 2018-11-09 19:45 | NUR ---
PT RESTING IN BED. ALERT AND ORIENTED. NO SIGNS OF DISTRESS. BREATHING EVEN AND UNLABORED. PT STATES NO PROBLEMS AT THIS TIME. IV SITE LT FA DRESSING CLEAN DRY AND INTACT. NO SIGNS OF INFECTION. SKIN CLEAN DRY AND INTACT. BOWEL SOUNDS ACTIVE. SOME LOWER LEG SWELLING PRESENT. SCDS ON. BED LOWERED AND LOCKED. BED RAILS UP X3. JO ALARM ON. YELLOW GOWN ON. WILL CONTINUE PLAN OF CARE. CALL LIGHT IN REACH.
[2018-11-09 20:37] VITALS: BP 168/78
[2018-11-10 00:55] VITALS: BP 154/74
--- NOTE | 2018-11-10 02:42 | NUR ---
I have reviewed this patient and I concur with the Shift Assessment completed by the Licensed Practical Nurse today this shift.
[2018-11-10 05:32] LABS: BASOPHILS 0.2 % (0-2); EOSINOPHILS 2.2 % (0-7); HEMATOCRIT 33.8 % (36.0-48.0); HEMOGLOBIN 10.7 g/dL (12-16); IMMATURE GRANULOCYTES 0.3 % (0-5); LYMPHOCYTES 38.3 % (15-50); MCH 27.1 pg (26.0-34.0); MCHC 31.7 g/dL (31.0-37.0); MCV 85.6 fL (80.0-100.0); MEAN PLATELET VOLUME 10.2 fL (7.4-10.4); MONOCYTES 13.9 % (2-11); NEUTROPHILS 45.1 % (40-80); PLATELET COUNT 197 10x3/uL (130-400); RBC 3.95 10x6/uL (4.00-5.40); RDW 15.2 % (11.5-14.5)
[2018-11-10 05:33] VITALS: BP 174/80
[2018-11-10 05:47] LABS: ALBUMIN 2.7 g/dL (3.4-5.0); ALKALINE PHOSPHATASE 110 U/L (46-116); ALT (SGPT) 19 U/L (10-68); BILIRUBIN - TOTAL 0.14 mg/dL (0.2-1.3); CALC OSMOLALITY 286 mosm/kg (275-300); CALCIUM 8.3 mg/dL (8.5-10.1); CARBON DIOXIDE 26.5 mmol/L (21.0-32.0); CHLORIDE - SERUM 109 mmol/L (98-107); CREATININE - SERUM 0.6 mg/dL (0.6-1.3); GLUCOSE 99 mg/dL (74-106); POTASSIUM - SERUM 3.7 mmol/L (3.5-5.1); PROTEIN - SERUM 5.8 g/dL (6.4-8.2); SODIUM 143 mmol/L (136-145); eGFR NON AFRICAN AMERICAN > 90 mL/min (90-120)
[2018-11-10 05:48] LABS: UREA NITROGEN 19 mg/dL (7-18)
--- NOTE | 2018-11-10 07:47 | NUR ---
PT RESTING IN BED WITH EYES CLOSED. CHEST RISING AND FALLING. NO S/S OF ACUTE DISTRESS. CL IN PLACE.
[2018-11-10 08:54] VITALS: BP 156/62
--- NOTE | 2018-11-10 10:32 | NUR ---
TURNED AND CHANGED PT WITH MANUFACTURING TECHNOLOGIST. 1 SOFT BROWN BM NOTED. NO S/S OF ACUTE DISTRESS. CL IN PLACE.
--- NOTE | 2018-11-10 10:49 | NUR ---
NUTRITION F/U PT CURRENTLY SLEEPING. TOLERATING REG DIET WITH 75% INTAKE RECENT MEALS. WILL CONTINUE TO HONOR FOOD PREFERENCES, MONITOR PO INTAKE. RD FOLLOWING
[2018-11-10 12:11] VITALS: BP 177/71
--- NOTE | 2018-11-10 12:42 | NUR ---
177/71. SPOKE WITH DAWN NIELSON WHO PUT IN NEW ORDERS FOR BP. NO S/S OF ACUTE DISTRESS. CL IN PLACE.
--- NOTE | 2018-11-10 13:42 | NUR ---
OT NOTE: ATTEMPTED OT EVAL TODAY. PT AGREEABLE AND STATED THAT SHE WOULD TRY BUT DIDNT THINK SHE COULD MOVE VERY MUCH. PT ABLE TO PERFORM SIMPLE GROOMING TASKS WHILE IN BED, BUT ANY MOVEMENT GREATER THAN THAT CAUSED SIGNIFICANT PAIN. PT STATED THAT SHE LIVED WITH BROTHER, BUT THAT SHE WAS MOD I AT HOME WITH USE OF WALKER TO ASSIST WITH AMBULATION. ATTEMPTED LOG ROLLING FROM SIDE TO SIDE AND PT TOLERATED BUT REQUIRED EXT ASSIST. ATTEMPTED SUPINE TO SIT, PT SCREAMED OUT IN PAIN. STATED THAT SHE JUST COULD NOT DO THAT AT THIS TIME. OT WILL CONTINUE TO FOLLOW, HOWEVER, UNSURE THAT SHE WILL BE ABLE TO PERFORM ADLS AND MOBILITY UNTIL AFTER SURGERY. THANK YOU FOR REFERAL, TIFFANIE HALEY, OTR/L
[2018-11-10 16:58] VITALS: BP 125/83
--- NOTE | 2018-11-10 18:10 | NUR ---
PT RESTING IN BED. DENIES PAIN. NO S/S OF ACUTE DISTRESS. CL IN PLACE.
--- NOTE | 2018-11-10 19:45 | NUR ---
PT RESTING IN BED. ALERT AND ORIENTED. NO SIGNS OF DISTRESS. BREATHING EVEN AND UNLABORED. PT STATES NO PROBLEMS AT THIS TIME. IV ZOEY LT FA DRESSING CLEAN DRY AND INTACT. NO SIGNS OF INFECTION. BOWEL SOUNDS ACTIVE. SOME LOWER LEG SWELLING PRESENT. PT IS HARD OF HEARING. BED LOWERED AND LOCKED. JO ALARM ON. BED RAILS UP X3. YELLOW GOWN AND ARM BAND ON. WILL CONTINUE PLAN OF CARE. CALL LIGHT IN REACH.
[2018-11-10 19:54] VITALS: BP 166/74
[2018-11-11 00:13] VITALS: BP 136/82
--- NOTE | 2018-11-11 05:02 | NUR ---
PT RESTING IN BED. EYES CLOSED. NO SIGNS OF DISTRESS. BREATHING EVEN AND UNLABORED. WILL CONTINUE PLAN OF CARE. CALL LIGHT IN REACH.
[2018-11-11 05:37] VITALS: BP 170/85
[2018-11-11 06:05] LABS: ALBUMIN 2.9 g/dL (3.4-5.0); ALKALINE PHOSPHATASE 129 U/L (46-116); ALT (SGPT) 19 U/L (10-68); BILIRUBIN - TOTAL 0.21 mg/dL (0.2-1.3); CALC OSMOLALITY 279 mosm/kg (275-300); CALCIUM 8.5 mg/dL (8.5-10.1); CARBON DIOXIDE 26.3 mmol/L (21.0-32.0); CHLORIDE - SERUM 105 mmol/L (98-107); CREATININE - SERUM 0.5 mg/dL (0.6-1.3); GLUCOSE 97 mg/dL (74-106); POTASSIUM - SERUM 3.6 mmol/L (3.5-5.1); PROTEIN - SERUM 6.3 g/dL (6.4-8.2); SODIUM 140 mmol/L (136-145); UREA NITROGEN 15 mg/dL (7-18); eGFR NON AFRICAN AMERICAN > 90 mL/min (90-120)
--- NOTE | 2018-11-11 06:07 | NUR ---
I have reviewed this patient and I concur with the Shift Assessment completed by the Licensed Practical Nurse today this shift.
[2018-11-11 06:21] LABS: BASOPHILS 0.1 % (0-2); EOSINOPHILS 2.5 % (0-7); HEMATOCRIT 35.1 % (36.0-48.0); HEMOGLOBIN 11.4 g/dL (12-16); IMMATURE GRANULOCYTES 0.1 % (0-5); LYMPHOCYTES 36.9 % (15-50); MCH 27.7 pg (26.0-34.0); MCHC 32.5 g/dL (31.0-37.0); MCV 85.2 fL (80.0-100.0); MEAN PLATELET VOLUME 10.7 fL (7.4-10.4); NEUTROPHILS 47.4 % (40-80); PLATELET COUNT 234 10x3/uL (130-400); RBC 4.12 10x6/uL (4.00-5.40); RDW 15.4 % (11.5-14.5); WBC 7.1 10x3/uL (4.8-10.8)
--- NOTE | 2018-11-11 08:08 | NUR ---
PT RESTING IN BED. AROUSED BY VERBAL STIMULI. NO S.S OF ACUTE DISTRESS. CL IN PLACE
[2018-11-11 09:57] VITALS: BP 141/72
[2018-11-11 12:47] VITALS: BP 143/77
--- NOTE | 2018-11-11 18:00 | NUR ---
PT RESTING IN BED. DENIES PAIN. NO S/S OF ACUTE DISTRESS. CL IN PLACE.
[2018-11-11 18:14] VITALS: BP 139/58
--- NOTE | 2018-11-11 19:15 | NUR ---
RECEIVED REPORT, ASSUMED CARE, SLEEPING, CALL LIGHT IN REACH, BED LOWEST POSITION, NO S/S OF DISTRESS NOTED, WILL CONTINUE TO MONITOR
[2018-11-11 21:18] VITALS: BP 141/49
[2018-11-12 00:48] VITALS: BP 140/80
--- NOTE | 2018-11-12 03:00 | NUR ---
I have reviewed this patient and I concur with the Shift Assessment completed by the Licensed Practical Nurse today this shift.
--- NOTE | 2018-11-12 03:00 | NUR ---
I have reviewed this patient and I concur with the Shift Assessment completed by the Licensed Practical Nurse today this shift.
[2018-11-12 04:50] VITALS: BP 148/70
[2018-11-12 05:27] LABS: BASOPHILS 0.3 % (0-2); EOSINOPHILS 2.7 % (0-7); HEMOGLOBIN 11.1 g/dL (12-16); IMMATURE GRANULOCYTES 0.2 % (0-5); LYMPHOCYTES 35.8 % (15-50); MCH 26.9 pg (26.0-34.0); MCHC 31.7 g/dL (31.0-37.0); MEAN PLATELET VOLUME 10.2 fL (7.4-10.4); MONOCYTES 13.2 % (2-11); NEUTROPHILS 47.8 % (40-80); PLATELET COUNT 202 10x3/uL (130-400); RBC 4.12 10x6/uL (4.00-5.40); RDW 15.1 % (11.5-14.5)
[2018-11-12 05:42] LABS: ALBUMIN 2.8 g/dL (3.4-5.0); ALKALINE PHOSPHATASE 129 U/L (46-116); BILIRUBIN - TOTAL 0.32 mg/dL (0.2-1.3); CALC OSMOLALITY 277 mosm/kg (275-300); CALCIUM 8.5 mg/dL (8.5-10.1); CARBON DIOXIDE 28.6 mmol/L (21.0-32.0); CHLORIDE - SERUM 103 mmol/L (98-107); CREATININE - SERUM 0.5 mg/dL (0.6-1.3); GLUCOSE 94 mg/dL (74-106); POTASSIUM - SERUM 3.6 mmol/L (3.5-5.1); PROTEIN - SERUM 6.1 g/dL (6.4-8.2); SODIUM 138 mmol/L (136-145); UREA NITROGEN 18 mg/dL (7-18); eGFR NON AFRICAN AMERICAN > 90 mL/min (90-120)
[2018-11-12 05:45] LABS: ALT (SGPT) 14 U/L (10-68)
--- NOTE | 2018-11-12 07:58 | NUR ---
PT RESTING IN BED WATCHING TV. DENIES PAIN. NO S/S OF ACUTE DISTRESS. CL IN PLACE.
[2018-11-12 09:45] VITALS: BP 158/62
[2018-11-12 13:24] VITALS: BP 140/63
--- NOTE | 2018-11-12 17:34 | NUR ---
PT RESTING IN BED. DENIES PAIN. WATCHING TV AND EATING DINNER. NO S/S ACUTE DISTRESS. CL IN PLACE.
[2018-11-12 18:08] VITALS: BP 149/51
--- NOTE | 2018-11-12 19:15 | NUR ---
RECEIVED REPORT, ASSUMED CARE, SLEEPING, CALL LIGHT IN REACH, BED LOWEST POSITION, NO S/S OF DISTRESS NOTED, PT CLEAN AND DRY, LAYING ON RIGHT SIDE, WILL CONTINUE POC
[2018-11-12 20:00] VITALS: BP 138/61
[2018-11-13] VITALS: BP 134/65
[2018-11-13 03:00] VITALS: BP 155/54
--- NOTE | 2018-11-13 04:31 | NUR ---
I have reviewed this patient and I concur with the Shift Assessment completed by the Licensed Practical Nurse today this shift.
[2018-11-13 06:12] LABS: BASOPHILS 0.3 % (0-2); EOSINOPHILS 1.8 % (0-7); HEMATOCRIT 34.3 % (36.0-48.0); IMMATURE GRANULOCYTES 0.2 % (0-5); LYMPHOCYTES 36.5 % (15-50); MCH 27.4 pg (26.0-34.0); MCHC 32.1 g/dL (31.0-37.0); MCV 85.5 fL (80.0-100.0); MEAN PLATELET VOLUME 10.7 fL (7.4-10.4); MONOCYTES 14.7 % (2-11); NEUTROPHILS 46.5 % (40-80); PLATELET COUNT 212 10x3/uL (130-400); RBC 4.01 10x6/uL (4.00-5.40); RDW 15.4 % (11.5-14.5); WBC 6.1 10x3/uL (4.8-10.8)
[2018-11-13 06:39] LABS: ALKALINE PHOSPHATASE 135 U/L (46-116); BILIRUBIN - TOTAL 0.23 mg/dL (0.2-1.3); CALC OSMOLALITY 275 mosm/kg (275-300); CALCIUM 8.3 mg/dL (8.5-10.1); CARBON DIOXIDE 27.8 mmol/L (21.0-32.0); CHLORIDE - SERUM 101 mmol/L (98-107); CREATININE - SERUM 0.5 mg/dL (0.6-1.3); GLUCOSE 95 mg/dL (74-106); POTASSIUM - SERUM 3.6 mmol/L (3.5-5.1); PROTEIN - SERUM 5.9 g/dL (6.4-8.2); SODIUM 137 mmol/L (136-145); UREA NITROGEN 19 mg/dL (7-18); eGFR NON AFRICAN AMERICAN > 90 mL/min (90-120)
[2018-11-13 06:51] LABS: ALT (SGPT) 21 U/L (10-68)
--- NOTE | 2018-11-13 07:35 | NUR ---
PATIENT ADMITTED WITH COMPRESSION FX,UTI, AND DEHYDRATION. PATIETN IS A&O BUT IS LOWER ELWHA. PATIENT DENIES NEEDS AT THIS TIME.
[2018-11-13 08:00] VITALS: BP 141/66
[2018-11-13 10:41] LABS: APPEARANCE CLEAR (CLEAR); BILIRUBIN NEGATIVE (NEGATIVE); COLOR STRAW (YELLOW); GLUCOSE NEGATIVE (NEGATIVE); KETONE NEGATIVE (NEGATIVE); NITRITE NEGATIVE (NEGATIVE); PROTEIN NEGATIVE (NEGATIVE); SPECIFIC GRAVITY 1.015 (1.005-1.020); UROBILINOGEN NORMAL (NORMAL)
--- NOTE | 2018-11-13 11:00 | NUR ---
UA OBTAINED BY STERILE IN AND OUT CATH
[2018-11-13 12:00] VITALS: BP 130/54
--- NOTE | 2018-11-13 16:23 | NUR ---
OT NOTE: PT ATTEMPTED BED MOBILITY TASKS. PT STATED SHE WAS IN PAIN. PT DID COMPLETED SIDE ROLLING WITH DAVIN Aleman. THANK YOU, DARRELL PRITCHETT
[2018-11-13 17:00] VITALS: BP 118/76; BP 148/55
[2018-11-13 17:08] LABS: AEROBE ID Final report (()); RESULT 1 Aerococcus urinae (())
--- NOTE | 2018-11-13 19:35 | NUR ---
PT RESTING IN BED. ALERT AND ORIENTED. NO SIGNS OF DISTRESS. BREATHING EVEN AND UNLABORED. PT STATES NO PROBLEMS AT THIS TIME. IV SITE LT FA DRESSING CLEAN DRY AND INTACT. NO SIGNS OF INFECTION. SKIN CLEAN DRY AND INTACT. BOWEL SOUNDS ACITVE. SOME LOWER LEG SWELLING PRESENT. SCDS ON. HARD OF HEARING. JO ALARM ON. BED LOWERED AND LOCKED. BED RAILS X3. CALL LIGHT IN REACH. WILL CONTINUE PLAN OF CARE.
[2018-11-13 21:16] VITALS: BP 133/61
[2018-11-14] VITALS (7 sets, daily range): BP systolic 112–148; BP diastolic 55–92
[2018-11-14 05:56] LABS: BASOPHILS 0.5 % (0-2); EOSINOPHILS 2.1 % (0-7); HEMATOCRIT 35.4 % (36.0-48.0); HEMOGLOBIN 11.3 g/dL (12-16); LYMPHOCYTES 38.7 % (15-50); MCH 27.7 pg (26.0-34.0); MCHC 31.9 g/dL (31.0-37.0); MCV 86.8 fL (80.0-100.0); MEAN PLATELET VOLUME 10.4 fL (7.4-10.4); MONOCYTES 16.2 % (2-11); NEUTROPHILS 42.5 % (40-80); PLATELET COUNT 228 10x3/uL (130-400); RBC 4.08 10x6/uL (4.00-5.40); RDW 15.3 % (11.5-14.5); WBC 6.1 10x3/uL (4.8-10.8)
[2018-11-14 06:20] LABS: ALBUMIN 2.8 g/dL (3.4-5.0); ALKALINE PHOSPHATASE 129 U/L (46-116); ALT (SGPT) 18 U/L (10-68); BILIRUBIN - TOTAL 0.25 mg/dL (0.2-1.3); CALC OSMOLALITY 281 mosm/kg (275-300); CALCIUM 8.5 mg/dL (8.5-10.1); CARBON DIOXIDE 29.8 mmol/L (21.0-32.0); CHLORIDE - SERUM 104 mmol/L (98-107); CREATININE - SERUM 0.6 mg/dL (0.6-1.3); GLUCOSE 89 mg/dL (74-106); INR 0.98 (0.85-1.17); POTASSIUM - SERUM 3.4 mmol/L (3.5-5.1); PROTEIN - SERUM 5.9 g/dL (6.4-8.2); PROTIME 12.5 SECONDS (11.6-15.0); SODIUM 141 mmol/L (136-145); UREA NITROGEN 17 mg/dL (7-18); eGFR NON AFRICAN AMERICAN > 90 mL/min (90-120)
[2018-11-14 09:23] LABS: APTT 29.5 SECONDS (22.8-39.4)
--- NOTE | 2018-11-14 14:04 | NUR ---
NUTRITION F/U PT CURRENTLY NPO FOR PROCEDURE TODAY. WILL PROVIDE DIET WHEN RESUMED, MONITOR PO INTAKE. RD FOLLOWING
--- NOTE | 2018-11-14 16:43 | NUR ---
Rehab Note- Kyphoplasty done today per IR. Spoke with KORY Lawson. Will follow at this time. Thank you for this referral! Tatiana Greenberg RN Clinical Liaison, [facility] Rehab
[2018-11-15 05:01] VITALS: BP 138/60
[2018-11-15 06:37] LABS: BASOPHILS 0.3 % (0-2); EOSINOPHILS 1.7 % (0-7); HEMATOCRIT 33.8 % (36.0-48.0); HEMOGLOBIN 10.7 g/dL (12-16); LYMPHOCYTES 30.1 % (15-50); MCH 27.2 pg (26.0-34.0); MCHC 31.7 g/dL (31.0-37.0); MEAN PLATELET VOLUME 10.4 fL (7.4-10.4); MONOCYTES 14.6 % (2-11); NEUTROPHILS 53.3 % (40-80); PLATELET COUNT 232 10x3/uL (130-400); RBC 3.93 10x6/uL (4.00-5.40); RDW 15.1 % (11.5-14.5); WBC 5.8 10x3/uL (4.8-10.8)
[2018-11-15 07:04] LABS: ALBUMIN 2.9 g/dL (3.4-5.0); ALKALINE PHOSPHATASE 138 U/L (46-116); ALT (SGPT) 17 U/L (10-68); BILIRUBIN - TOTAL 0.31 mg/dL (0.2-1.3); CALC OSMOLALITY 281 mosm/kg (275-300); CALCIUM 8.3 mg/dL (8.5-10.1); CARBON DIOXIDE 29.6 mmol/L (21.0-32.0); CHLORIDE - SERUM 105 mmol/L (98-107); CREATININE - SERUM 0.5 mg/dL (0.6-1.3); GLUCOSE 96 mg/dL (74-106); POTASSIUM - SERUM 3.5 mmol/L (3.5-5.1); PROTEIN - SERUM 5.9 g/dL (6.4-8.2); SODIUM 141 mmol/L (136-145); UREA NITROGEN 16 mg/dL (7-18); eGFR NON AFRICAN AMERICAN > 90 mL/min (90-120)
[2018-11-15 08:30] VITALS: BP 161/54
--- NOTE | 2018-11-15 10:42 | NUR ---
INSISTS THAT SHE DOES NOT WANT TO BE "HALF NAKED" WHEN WEARING THE BACK BRACE. INSISTANT THAT SHE WILL BE GOING HOME TODAY WELL. WAS INFORMED THAT PT AND OT WAS GOING TO COME WORK WITH HER. VOICED SOME FRUSTRATION WITH THIS AND BEING A PATIENT
--- NOTE | 2018-11-15 12:12 | NUR ---
OT NOTE: PT VERY LOUD AND AGITATED TODAY. PT STATING THAT SHE IS GOING HOME AND IS WAITING FOR BROTHER TO PICK HER UP. EXPLAINED TO PT THAT WE WOULD WALK HER TO THE CAR ( KNOWING THAT SHE WAS NOT GOING HOME AND PROBABLY STILL FEELING THE EFFECTS OF MEDS FROM SURGERY.) BED MOB WITH MOD ASSIST..PT HAD A BM AND WAS UNAWARE; CLEANED PT WITH MAX ASSIST; APPLIED BRIEF WITH MAX ASSIST; SIT TO STAND WITH MIN/MOD ASSIST; ATTEMPTED TO TAKE STEPS AND BEGAN CRYING OUT IN PAIN AND STATING THAT SHE COULDNT MOVE R FOOT ( WHILE SHE WAS MOVING HER R FOOT TO ADVANCE FOR STEP.) TOLERATED SITTING UP IN CHAIR FOR SHORT TIME WHILE LINENS WERE CHANGED. AMB BACK TO BED WITH WALKER AND MOD ASSIST. PT WAS AGITATED BUT VERY HUMOROUS TODAY. TIFFANIE HALEY, OTR/L
[2018-11-15] MEDS ORDERED: SYNTHROID25 MCG PO (12:53)
--- NOTE | 2018-11-15 12:54 | MORECARE ---
CASE MANAGEMENT DISCHARGE SUMMARY PATIENT: NIKKI MADRID UNIT: [id number] ADM DATE: 11/07/18 AGE: 88 : [birth year] SEX: F ROOM/BED: D.2211 AUTHOR: TE SILVA PHYSICIAN: REFERRING PHYSICIAN: ANNA NGUYEN MD DATE OF SERVICE: 11/15/18 Discharge Plan Patient Name: NIKKI MADRID Facility: [facility]:[place] : 1930 Planned Disposition: Home or Self Care Anticipated Discharge Date: Discharge Date: Expected LOS: Initial Reviewer: [id number] Initial Review Date: 11/06/2018 Generated: 11/15/18 1:53 pm Comments DCP- Discharge Planning Updated by [email or web address]: Carrie Gomez on 11/15/18 11:[address] DISCUSSED WITH PATIENT ABOUT INPATIENT REHAB AND SHE IS AGREEABLE TO GO TO GET STRONGER BEFORE SHE GOES HOME. I ALSO SPOKE WITH HER BROTHER THIS AM AND HE THOUGHT IT WOULD BE A GOOD IDEA TO GO BEFORE SHE CAME HOME. IMM SERVED AND EXPLAINED DCP- Discharge Planning Updated by [email or web address]: Carrie Gomez on 11/09/18 3:[address] Patient Name: NIKKI MADRID Admission Status: ER Accout number: [id number] Admission Date: 11-07-2018 : 1930 Admission Diagnosis: Attending: ANNA NGUYEN Current LOS: 2 Anticipated DC Date: Planned Disposition: Home or Self Care Primary Insurance: MEDICARE A & B Discharge Planning Comments: CM met with patient to assess discharge planning needs. Patient stated that she lives with her brother where she is partial independent with her care. She has Janis who comes to her home every Tuesday to give her baths. Her brother helps her with medication. She has a walker, wheelchair and a tub bench. She would like Santi with [employer] [facility] to take her home at discharge. CM will continue to follow and assist with DC planning needs Compensation Adjuster: Carrie Gomez DCPIA - Discharge Planning Initial Assessment Updated by [id number]: Carrie Gomez on 11/09/18 4:12 pm * Is the patient Alert and Oriented? Yes * How many steps to enter\exit or inside your home? * PCP Arun * [facility] * Preadmission Environment Home with Family * ADLs Partial Dependent * Partial ADLs (Assistance needed) Bathing Medication Management * Equipment Tub Bench Walker Wheelchair * List name and contact numbers for known caregivers / representatives who currently or will assist patient after discharge: Robin (brother) [phone] * Verbal permission to speak to the caregivers and representatives has been obtained from the patient. No * Community resources currently utilized None * Additional services required to return to the preadmission environment? No * Can the patient safely return to the preadmission environment? Yes * Has this patient been hospitalized within the prior 30 days at any hospital? No Coverage Notice Reviewer: [id number] Madelaine Gomez Notice Issued Date-Time: 11/15/2018 12:40 Notice Type: IM Discharge Notice Notice Delivered To: Patient Relationship to Patient: Wall Insulation Sprayer Name: Delivery Method: HAND - Hand Delivered Jolene Days: Prior Verbal Notification: Recipient Understood Notice: Yes Recipient Signature: Yes Med Rec Note Co-signed by Attending: Coverage Notice Comment: Last DP export: 11/09/18 3:17 p Patient Name: NIKKI MADRID Page [id number] at 1254 All edits/amendments must be made on the electronic document DICTATION DATE: 11/15/181252 MATERIAL MOVER: ROSSANA 11/15/181252 RPT#: [id number] DC DATE: STATUS: ADM IN [facility] [address] [place] [address] END OF REPORT
[2018-11-15 13:03] VITALS: BP 159/63
--- NOTE | 2018-11-15 16:16 | NUR ---
IV THERAPY DC'ED. REPORT CALLED TO REHAB. NO FURTHER NEEDS AT THIS TIME
--- NOTE | 2018-11-15 16:16 | NUR ---
OT NOTE: PT COMPLETED BED MOB WITH MOD/MAX A. PT COMPLETED HYGIENE TASKS WITH MOD/ MAX A. THANK YOU, DARRELL PRITCHETT
[2018-11-15] MEDS ORDERED: HYDROCHLOROTH12.5 M1 PO (16:46)
[2018-11-15] MEDS ORDERED: CATAPRES0.1 MG PO (16:49)
--- NOTE | 2018-11-15 16:54 | NUR ---
tried to get in touch with DEEPIKA TORREZ THE BROTHER TO INFORM HIM WE TOOK PATIENT DOWN TO REHAB. WAS UNABLE TO LEAVE A MESSAGE.
== END 2018-11-15 16:25 | DRG 478 ==
LOC: D.ER 17:57 → D.MS 22:10 → OBSVTIME 22:10 → D.MS 11-07 16:21
PROVIDERS: Emergency Medicine; Family Medicine; General Practice; Internal Medicine Nephrology; ADMIT Family Medicine; ATTEND Family Medicine
PROC: 0PB43ZX Excision of Thoracic Vertebra, Percutaneous Approach, Diagnostic (ICD-10-PCS; 2018-11-14)
PROC: 0PU43JZ Supplement Thoracic Vertebra with Synthetic Substitute, Percutaneous Approach (ICD-10-PCS; 2018-11-14)
PROC: 0QS03ZZ Reposition Lumbar Vertebra, Percutaneous Approach (ICD-10-PCS; 2018-11-14)
PROC: 0QU03JZ Supplement Lumbar Vertebra with Synthetic Substitute, Percutaneous Approach (ICD-10-PCS; 2018-11-14)
PROC: 0QB03ZX Excision of Lumbar Vertebra, Percutaneous Approach, Diagnostic (ICD-10-PCS; 2018-11-14)
PROC: 0PS43ZZ Reposition Thoracic Vertebra, Percutaneous Approach (ICD-10-PCS; principal; 2018-11-14 15:00)
DX: M80.88XA Other osteoporosis with current pathological fracture, vertebra(e), initial encounter for fracture (principal); N39.0 Urinary tract infection, site not specified; G95.9 Disease of spinal cord, unspecified; E86.0 Dehydration

== ENCOUNTER 2018-11-15 14:45 | Inpatient (IN) | payer MEDICARE ==
[~2018-11-15] VITALS: Ht 165.1 cm; Wt 51.7 kg
--- NOTE | 2018-11-15 16:40 | NUR ---
RECIEVED FROM ACUTE FLOOR TO ROOM 1118B.ORIENTED TO ROOM AND SURROUNDINGS.CL IN REACH.
[2018-11-15] MEDS ORDERED: HYDROCHLOROTH12.5 M1 PO (16:46)
[2018-11-15] MEDS ORDERED: CATAPRES0.1 MG PO (16:49)
[2018-11-15 18:26] VITALS: BP 155/68; BMI 19.0
[2018-11-15 19:00] VITALS: BP 155/68
--- NOTE | 2018-11-15 19:55 | NUR ---
PATIENT RECEIVED LAYING IN BED. PATIENT RESPONSIVE TO VOICE. PATIENT ASSESSMENT & VITAL SIGNS DONE. PATIENT BED LOW. CALL LIGHT WITHIN REACH. WILL CONTINUE TO MONITOR.
--- NOTE | 2018-11-16 02:24 | NUR ---
PT IN BED, LOW POSITION, EYES CLOSED, AROUSES TO VOICE, FLUIDS AND CALL LIGHT WITHIN REACH, NO NEEDS NOTED
--- NOTE | 2018-11-16 04:40 | NUR ---
PATIENT PADS CHANGED DUE TO INCONTINENCE OF URINE. PATIENT BACK DRESSINGS DRY & INTACT. BED LOW. CALL LIGHT WITHIN REACH. PATIENT MADE COMFORTABLE. WILL CONTINUE TO MONITOR.
[2018-11-16 07:33] LABS: BASOPHILS 0.2 % (0-2); EOSINOPHILS 2.2 % (0-7); HEMATOCRIT 33.1 % (36.0-48.0); HEMOGLOBIN 10.6 g/dL (12-16); IMMATURE GRANULOCYTES 0.2 % (0-5); MCH 27.3 pg (26.0-34.0); MCV 85.3 fL (80.0-100.0); MEAN PLATELET VOLUME 9.4 fL (7.4-10.4); MONOCYTES 14.7 % (2-11); NEUTROPHILS 48.7 % (40-80); PLATELET COUNT 200 10x3/uL (130-400); RBC 3.88 10x6/uL (4.00-5.40); RDW 15.2 % (11.5-14.5)
[2018-11-16 07:56] LABS: CALC OSMOLALITY 284 mosm/kg (275-300); CALCIUM 8.6 mg/dL (8.5-10.1); CARBON DIOXIDE 28.6 mmol/L (21.0-32.0); CHLORIDE - SERUM 106 mmol/L (98-107); CREATININE - SERUM 0.5 mg/dL (0.6-1.3); GLUCOSE 101 mg/dL (74-106); POTASSIUM - SERUM 3.7 mmol/L (3.5-5.1); SODIUM 142 mmol/L (136-145); UREA NITROGEN 18 mg/dL (7-18); eGFR NON AFRICAN AMERICAN > 90 mL/min (90-120)
[2018-11-16 08:00] VITALS: BP 138/45
[2018-11-16 13:49] VITALS: Ht 165.1 cm; Wt 51.7 kg
--- NOTE | 2018-11-16 19:20 | NUR ---
PT SITTING UP IN BED. CALL LIGHT IN REACH. BED IN LOW SIDE RAILS X2. RESP EVEN AND UNLABORED. PT A/O X4. INTRODUCED SELF. PT DENIES NEEDS OR PAIN AT THIS TIME. WILL CONTINUE TO MONITOR.
[2018-11-16 19:51] VITALS: BP 129/46
--- NOTE | 2018-11-17 01:34 | NUR ---
RESTING IN BED WITH EYES CLOSED AND RESPIRATIONS UNLABORED. NO DISTRESS NOTED.
--- NOTE | 2018-11-17 02:19 | NUR ---
PT RESTING QUIETLY. CALL LIGHT IN REACH. CHECKED AND PT IS NOT WET DUE TO BEING INCONTINENT. RESP EVEN AND UNLABORED.
[2018-11-17 06:43] LABS: HEMATOCRIT 33.7 % (36.0-48.0); HEMOGLOBIN 10.9 g/dL (12-16); MCH 27.7 pg (26.0-34.0); MCHC 32.3 g/dL (31.0-37.0); MCV 85.5 fL (80.0-100.0); MEAN PLATELET VOLUME 10.2 fL (7.4-10.4); PLATELET COUNT 230 10x3/uL (130-400); RBC 3.94 10x6/uL (4.00-5.40); RDW 15.2 % (11.5-14.5); WBC 5.3 10x3/uL (4.8-10.8)
[2018-11-17 06:54] LABS: ANION GAP 12.2 mmol/L (8-16); CALCIUM 8.3 mg/dL (8.5-10.1); CARBON DIOXIDE 28.5 mmol/L (21.0-32.0); POTASSIUM - SERUM 3.7 mmol/L (3.5-5.1)
[2018-11-17 06:58] LABS: CREATININE - SERUM 0.8 mg/dL (0.6-1.3)
[2018-11-17 07:23] LABS: EOSINOPHILS 1 % (0-7); LYMPHOCYTES 39 % (15-50); MONOCYTES 16 % (2-11); NEUTROPHILS 44 % (40-80); PLATELET ESTIMATE NORMAL
[2018-11-17 07:57] VITALS: BP 146/61
--- NOTE | 2018-11-17 09:13 | NUR ---
PT AM MEDS ADMINISTERED. PT DENIES NEEDS. WCTM.
--- NOTE | 2018-11-17 12:38 | NUR ---
PT SITTING UP IN BED EATING LUNCH, DENIES NEEDS. WCTM.
--- NOTE | 2018-11-17 14:58 | NUR ---
PT RESTING EYES CLOSED. RR ARE EVEN AND UNLABORED. WCTM.
--- NOTE | 2018-11-17 19:14 | NUR ---
PATIENT IS RESTING IN HER BED. SHE DENIES ANY NEEDS. BED IS DOWN LOW WITH SIDE RAILS UP X2. CALL LIGHT IS IN REACH.
[2018-11-17 21:14] VITALS: BP 139/54
--- NOTE | 2018-11-17 21:27 | NUR ---
PT IS RESTING IN BED WATCHING TV. NO NEEDS VOICED.
--- NOTE | 2018-11-17 23:34 | NUR ---
PT RESTING IN BED WITH EYES CLOSED.
--- NOTE | 2018-11-18 01:33 | NUR ---
PT RESTING QUIETLY IN BED WITH EYES CLOSED.
--- NOTE | 2018-11-18 06:14 | NUR ---
PT RESTING QUIETLY IN BED WITH EYES OPEN. NO NEEDS VOICED. PT DENIES NEED TO VOID, DESPITE NOT HAVING A VOID YET THIS SHIFT. PT STATES SHE WILL CALL IF SHE NEEDS TO GO.
--- NOTE | 2018-11-18 08:15 | NUR ---
SITTING UP IN BED FOR BREAKFAST. DENIES NEEDS OR C/O. FEEDS SELF. IS PLEASANT AND COOPERATIVE. CALL LIGHT IN REACH. BED IN LOWEST POSITION.
[2018-11-18 08:32] VITALS: BP 132/57
--- NOTE | 2018-11-18 16:24 | NUR ---
RESTING QUIETLY ON SIDE IN HER BED. THE HEAD OF BED IS ELEVATED APPX 45 DEGREES. NO S/S DISTRESS. RESP EFFORT NON LABORED. BED IN LOWEST POSITION, CALL LIGHT IN REACH
[2018-11-18 20:00] VITALS: BP 153/53
--- NOTE | 2018-11-18 23:20 | NUR ---
PATIENT RECEIVED SITTING UP IN BED WATCHING TV. PATIENT VITAL SIGNS & ASSESSMENT DONE. NO C/O PAIN OR DISTRESS. CALL LIGHT WITHIN REACH. WILL CONTINUE TO MONITOR.
--- NOTE | 2018-11-19 00:14 | NUR ---
RESTING IN BED WITH EYES CLOSED AND RESPIRATIONS UNLABORED. NO DISTRESS NOTED. CALL LIGHT IN REACH.
--- NOTE | 2018-11-19 02:44 | NUR ---
PATIENT EYES CLOSED. RESPIRATIONS 18 & EVEN. BED LOW. CALL LIGHT WITHIN REACH. WILL CONTINUE TO MONITOR.
--- NOTE | 2018-11-19 07:33 | NUR ---
RESTING QUIETLY IN BED. EYES CLOSED. NO S/S DISTRESS. CALL LIGHT IN REACH.
[2018-11-19 07:47] VITALS: BP 170/66
--- NOTE | 2018-11-19 10:29 | NUR ---
LAYING ON LEFT SIDE AND BED WATCHING TV. IS [place] BUT IS PLEASANT AND COOPERATIVE. IS INCONT OF B/B. CALL LIGHT IN REACH
--- NOTE | 2018-11-19 14:46 | NUR ---
RESTING QUIETLY IN BED. DENIES NEEDS. INCONT OF URINE. CALL LIGHT IN REACH
--- NOTE | 2018-11-19 18:25 | NUR ---
HAS FINISHED SUPPER AND IS LAYING IN BED WATCHING TV. IS PLEASANT AND COOPERATIVE. DENIES NEEDS. CALL LIGHT IN REACH. BED IN LOWEST POSITION.
--- NOTE | 2018-11-19 19:33 | NUR ---
PT LYING IN BED WATCHING TV. CALL LIGHT IN REACH. PT DENIES NEEDS OR PAIN. BED IN LOW SIDE RAILS X2. RESP EVEN AND UNLABORED. BOWEL ACTIVE X4. PT IS INCONT. X2. PT HAS 2 INCISIONS ON BACKSIDE FROM PREVIOUS PROCEDURE WITH OPSITE INTACT. PT IS [place]. LUNGS CLEAR. PULSE REGULAR. FRESH WATER AT BEDSIDE. WILL CONTINUE TO MONITOR. CPOC
[2018-11-19 22:03] VITALS: BP 141/60
--- NOTE | 2018-11-19 23:47 | NUR ---
RESTING IN BED WITH EYES CLOSED AND RESPIRATIONS UNLABORED. NO DISTRESS NOTED. CALL LIGHT IN REACH.
--- NOTE | 2018-11-20 01:18 | NUR ---
PT WAS INCONT. CHANGED PADS AND CLEANED PT. PT DENIES NEEDS AT THIS TIME. JUST CANT SLEEP SHE STATED. WILL CONTINUE TO MONITOR. CALL LIGHT IN REACH
--- NOTE | 2018-11-20 06:33 | NUR ---
PT CHANGED AND CLEANED FROM INCONTINENCE. CALL LIGHT IN REACH. DENIES NEEDS OR PAIN. WCTM
[2018-11-20 07:47] LABS: BASOPHILS 0.2 % (0-2); EOSINOPHILS 1.9 % (0-7); HEMATOCRIT 35.5 % (36.0-48.0); HEMOGLOBIN 11.4 g/dL (12-16); IMMATURE GRANULOCYTES 0.2 % (0-5); LYMPHOCYTES 31.4 % (15-50); MCH 27.7 pg (26.0-34.0); MCHC 32.1 g/dL (31.0-37.0); MCV 86.2 fL (80.0-100.0); MEAN PLATELET VOLUME 9.8 fL (7.4-10.4); MONOCYTES 13.9 % (2-11); NEUTROPHILS 52.4 % (40-80); PLATELET COUNT 230 10x3/uL (130-400); RBC 4.12 10x6/uL (4.00-5.40); RDW 14.9 % (11.5-14.5); WBC 5.3 10x3/uL (4.8-10.8)
[2018-11-20 08:00] VITALS: BP 156/68
[2018-11-20 08:10] LABS: CALC OSMOLALITY 273 mosm/kg (275-300); CALCIUM 8.5 mg/dL (8.5-10.1); CARBON DIOXIDE 28.7 mmol/L (21.0-32.0); CHLORIDE - SERUM 101 mmol/L (98-107); CREATININE - SERUM 0.5 mg/dL (0.6-1.3); GLUCOSE 92 mg/dL (74-106); POTASSIUM - SERUM 3.5 mmol/L (3.5-5.1); SODIUM 137 mmol/L (136-145); UREA NITROGEN 13 mg/dL (7-18); eGFR NON AFRICAN AMERICAN > 90 mL/min (90-120)
--- NOTE | 2018-11-20 14:19 | NUR ---
Nutrition Follow Up: Chart reviewed Diet: Regular PO Intake: 48% meal avg BM: 11/17/18 Meds and labs reviewed Rec continue current diet. RD following.
--- NOTE | 2018-11-20 15:02 | NUR ---
PATIENT ADMITTED TO REHAB FROM ACUTE FLOOR. SHE LIVES WITH HER BROTHER AND HAS SOME ONE TO COME AND HELP HER WITH HER BATHING. DR. NGUYEN IS HER PCP. DME AT HOME IS A WLAKER, WHEELCHAIR AND A TUB BENCH. DISCHARGE PLANS ARE FOR HER TO RETURN HOME. WILL CONTINUE TO FOLLOW WITH PATIENT.
[2018-11-20 19:12] VITALS: BP 151/66
--- NOTE | 2018-11-20 21:19 | NUR ---
PT IS RESTING IN BED WITH EYES OPEN. ALERT AND ORIENTED X 3. DENIES ACUTE DISCOMFORT. INC. CARE GIVEN AT THIS TIME. PT VOICED COMPLAINT OF GENERAL DISCOMFORT PAIN LEVEL OF 6. MEDICATED PER MAR. SR'S ARE UP X 2 IN BED. CALL LIGHT AND BEDSIDE TABLE ARE WITHIN EASY REACH.
--- NOTE | 2018-11-20 22:29 | NUR ---
PT IS RESTING QUIETLY IN BED WITH EYES CLOSED. RESPS ARE EVEN AND UNLABORED. NO ACUTE DISTRESS NOTED.
--- NOTE | 2018-11-21 00:50 | NUR ---
PT IN BED EYES CLOSED, BED LOW, FLUIDS AND CALL LIGHT WITHIN REACH
--- NOTE | 2018-11-21 01:01 | NUR ---
RESTING IN BED WITH EYES CLOSED.
--- NOTE | 2018-11-21 05:24 | NUR ---
RESTING IN BED WITH EYES CLOSED.
[2018-11-21 07:32] VITALS: BP 167/68
--- NOTE | 2018-11-21 08:00 | NUR ---
SHIFT ASSMT COMPLETED.CL IN REACH.INCONT OF URINE.BATH GIVEN;REFUSES TO TAKE SHOWER.CLOSED CHANGED FROM SAT URINE ON THEM.SET-UP FOR BREAKFAST PROVIDED.
--- NOTE | 2018-11-21 12:00 | NUR ---
SITTING UP EATING LUNCH.
--- NOTE | 2018-11-21 16:00 | NUR ---
INDIRA THERAPY.RESTING QUIETLY.
[2018-11-21 21:29] VITALS: BP 141/54
--- NOTE | 2018-11-22 04:22 | NUR ---
PT IN BED LOW POS, EYES CLOSED, AROUSES EASILY TO VOICE, FLUIDS AND CALL LIGHT WITHIN REACH, NO NEEDS NOTED
[2018-11-22 07:58] VITALS: BP 139/57
--- NOTE | 2018-11-22 08:00 | NUR ---
PATIENT ALERT/ORIENT. BED ALARM ON. CALL LIGHT WITHIN REACH. VOICES NO NEEDS AT THIS TIME. WILL CONTINUE WITH PLAN OF CARE.
[2018-11-22 08:40] LABS: CALC OSMOLALITY 274 mosm/kg (275-300); CALCIUM 8.5 mg/dL (8.5-10.1); CARBON DIOXIDE 29.6 mmol/L (21.0-32.0); CHLORIDE - SERUM 102 mmol/L (98-107); CREATININE - SERUM 0.5 mg/dL (0.6-1.3); GLUCOSE 96 mg/dL (74-106); POTASSIUM - SERUM 3.1 mmol/L (3.5-5.1); SODIUM 137 mmol/L (136-145); UREA NITROGEN 14 mg/dL (7-18); eGFR NON AFRICAN AMERICAN > 90 mL/min (90-120)
[2018-11-22 08:59] LABS: BASOPHILS 0.2 % (0-2); HEMATOCRIT 33.9 % (36.0-48.0); HEMOGLOBIN 10.8 g/dL (12-16); LYMPHOCYTES 38.8 % (15-50); MCH 27.2 pg (26.0-34.0); MCHC 31.9 g/dL (31.0-37.0); MCV 85.4 fL (80.0-100.0); MEAN PLATELET VOLUME 10.1 fL (7.4-10.4); MONOCYTES 19.9 % (2-11); NEUTROPHILS 39.1 % (40-80); PLATELET COUNT 239 10x3/uL (130-400); RBC 3.97 10x6/uL (4.00-5.40); RDW 14.8 % (11.5-14.5); WBC 4.1 10x3/uL (4.8-10.8)
--- NOTE | 2018-11-22 10:00 | NUR ---
PATIENT IN REHAB ROOM. WORKING WITH PHYSICAL THERAPIST. DENIES ANY PAIN/DISC AT THIS TIME.
--- NOTE | 2018-11-22 10:51 | NUR ---
PATIENT IN REHAB ROOM. WORKING WITH PHYSICAL THERAPIST. DENIES ANY PAIN/DISC AT THIS TIME.
--- NOTE | 2018-11-22 12:44 | NUR ---
PATIENT SITTING UP IN CHAIR AT BEDSIDE TO EAT LUNCH. CALL LIGHT WITHIN REACH
--- NOTE | 2018-11-22 19:35 | NUR ---
GREETED PATIENT AND INTRODUCED MYSELF. PATIENT IS LAYING IN BED IN SUPINE POSITION. DENIES ANY PAIN AT THIS TIME OR ANY OTHER NEEDS. CALL LIGHT IN REACH.
[2018-11-22 20:02] VITALS: BP 118/49
--- NOTE | 2018-11-23 03:42 | NUR ---
PATIENT ASLEEP LAYING IN SUPINE POSITION. HOB AT 20 DEGREES. RESPIRATIONS EVEN. NO S/S OF DISTRESS. CALL LIGHT IN REACH.
--- NOTE | 2018-11-23 03:45 | NUR ---
PATIENT ASLEEP LAYING IN SUPINE POSITION. HOB AT 20 DEGREES. RESPIRATIONS EVEN. NO S/S OF DISTRESS. CALL LIGHT IN REACH.
--- NOTE | 2018-11-23 07:44 | NUR ---
LAYING ON BACK IN BED. EYES CLOSED. RESP EFFORT NON LABORED. CALL LIGHT IN REACH. BED IN LOWEST POSITION.
[2018-11-23 08:01] VITALS: BP 147/56
--- NOTE | 2018-11-23 10:33 | NUR ---
SITTING UP IN WC IN THERAPY ROOM.
--- NOTE | 2018-11-23 14:11 | NUR ---
BACK IN BED WATCHING TV. CALL LIGHTIN REACH
--- NOTE | 2018-11-23 16:03 | NUR ---
EYES CLOSED. NO S/S DISTRESS. CALL LIGHT IN REACH
--- NOTE | 2018-11-23 18:42 | NUR ---
LAYING IN BED WATCHING TV. IS [place] AND RESPONDS SLOW SOME TIMES. IS INCONT OF URINE. CALL LIGHT IN REACH
[2018-11-23 19:00] VITALS: BP 136/57
--- NOTE | 2018-11-23 19:30 | NUR ---
PT LYING IN BED WATCHING TV. CALL LIGHT IN REACH. PT DENIES NEEDS OR PAIN AT THIS TIME. BED IN LOW. SIDE RAILS X2. BED ALARM ON. INCONT OF BOWEL AND BLADDER. [place]. RESP EVEN AND UNLABORED. WILL CONTINUE TO MONITOR.
--- NOTE | 2018-11-24 01:02 | NUR ---
RESTING IN BED WITH RESPIRATIONS UNLABORED AND NO DISTRESS NOTED. CALL LIGHT IN REACH.
--- NOTE | 2018-11-24 04:55 | NUR ---
PT RESTING QUIETLY. EYES CLOSED. NO SIGNS OF DISTRESS OR PAIN. BED IN LOW. CALL LIGHT IN REACH. PT HAS BEEN CHANGED 3 TIMES THROUGH OUT NIGHT DUE TO INCONT. WCTM
[2018-11-24 08:00] VITALS: BP 173/83
--- NOTE | 2018-11-24 16:00 | NUR ---
SITTING IN WC IN THERAPY. WEARING BACKBRACE. STATES SHE IS GETTING A COLD.
--- NOTE | 2018-11-24 17:49 | NUR ---
SITTING UP IN BED EATING SUPPER. DENIES NEEDS. CALL LIGHT IN REACH
--- NOTE | 2018-11-24 19:13 | NUR ---
PATIENT IS RESTING IN HER BED AND APPEARS TO BE SLEEPING. NO SIGNS OF DISTRESS. BED IS DOWN LOW WITH SIDE RAILS UP X2. CALL LIGHT IN REACH.
[2018-11-24 20:00] VITALS: BP 122/63
--- NOTE | 2018-11-24 20:00 | NUR ---
PATIENT RECEIVED SITTING UP IN BED. PATIENT ASSESSMENT & VITAL SIGNS DONE. PATIENT HAD NO C/O PAIN OR DISTRESS. PATIENT CALL LIGHT & BEDSIDE TABLE WITHIN REACH. WILL CONTINUE TO MONITOR.
--- NOTE | 2018-11-25 01:45 | NUR ---
PATIENT EYES CLOSED. RESPIRATIONS 18 & EVEN. BED LOW. ALARM ON. CALL LIGHT WITHIN REACH. WILL CONTINUE TO MONITOR.
[2018-11-25 08:00] VITALS: BP 142/68
--- NOTE | 2018-11-25 08:00 | NUR ---
SHIFT ASSMT COMPLETED.DENIES NEEDS.UP OOB TO .INCONT OF URINE.TAKEN TO BATHROOM.CLEANED AND RETURNED TO FOR BREAKFAST,CL IN REACH.
--- NOTE | 2018-11-25 12:00 | NUR ---
UP IN WC FOR LUNCH.CL IN REACH.
--- NOTE | 2018-11-25 16:00 | NUR ---
RESTING QUIETLY IN BED.
--- NOTE | 2018-11-25 19:06 | NUR ---
PATIENT IS RESTING IN HER BED WITH EYES CLOSED. NO SIGNS OF DISTRESS. HER BED IS DOWN LOW WITH SIDE RAILS UP X2. CALL LIGHT IS IN REACH.
[2018-11-25 19:37] VITALS: BP 146/51
--- NOTE | 2018-11-25 21:00 | NUR ---
PATIENT RECEIVED SITTING UP IN BED WATCHING TV. PATIENT ASSESSMENT & VITAL SIGNS DONE. BED SIDE TABLE & CALL LIGHT WITHIN REACH. BED LOW. ALARM ON. WILL CONTINUE TO MONITOR.
--- NOTE | 2018-11-26 05:19 | NUR ---
PATIENT EYES CLOSED. RESPIRATIONS 18 & EVEN. BED LOW. ALARM ON. CALL LIGHT WITHIN REACH. WILL CONTINUE TO MONITOR.
[2018-11-26 08:00] VITALS: BP 131/57
--- NOTE | 2018-11-26 08:00 | NUR ---
UP OOB TO WC FOR BREAKFAST.INCONT OF URINE.TAKEN TO BATHROOM AND CLEANED.REFUSES TO GET IN SHOWER;STATES SHE IS NOT GETTING IN SHOWER.SPONGEBATH GIVEN.LINENS CHANGED.
--- NOTE | 2018-11-26 12:00 | NUR ---
SITTING UP IN CHAIR FOR LUNCH.CL IN REACH.
[2018-11-26 22:49] VITALS: BP 135/57
--- NOTE | 2018-11-27 02:50 | NUR ---
THE PATIENT IS AWAKE AND TALKING TO STAFF. SHE HAS NO QUESTIONS OR CONCERNS AT THIS TIME.
[2018-11-27 08:00] VITALS: BP 129/57
--- NOTE | 2018-11-27 08:01 | NUR ---
SITTING UP IN BED WATCHING TV. DENIES NEEDS OR C/O. IS [place]. CALL LIGHT IN REACH
--- NOTE | 2018-11-27 09:58 | RHP ---
PATIENT: NIKKI MADRID MEDICAL RECORD: [id number] ACCOUNT: [id number] LOCATION:[id number] : [birth year] ADMISSION DATE: 11/15/18 REHABILITATION HISTORY AND PHYSICAL EXAMINATION POST ADMISSION PHYSICIAN EXAMINATION DATE OF ADMISSION: 11/15/2018. 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 She is an 88-year-old female patient who presented to the ED with complaints of acute pain following several months progressive worsening of this pain in her back that became worse prior to presenting. She reports she had a procedure done on her back by Dr. Nova 2 weeks ago and did well for a few days, but the pain increased since and she has got a past medical history of hypothyroidism, chronic back pain, got a history of cardiac murmur. She was found on an MRI of her thoracic spine to have severe compression fractures at T6, moderate compression fractures at T11. She did have a severe late subacute to chronic compression fractures at L3 vertebral body also. She is certainly having acute pain. She is having some bowel and bladder incontinence. She is debilitated and deconditioned. She is having proximal muscle weakness. She is a high fall risk and she has self-care deficits. These are all barriers to her discharge home at this time. She lives at home alone, was moderately independent with her ADLs with use of a shower bench. She was moderately independent with mobility. She is currently set up for max assist for ADLs, and max assist to total assist for mobility. She would like to return home at her prior level of functioning or even better if possible. COMORBIDITIES: In this patient include UTI, dehydration acute/subacute severe compression fractures, hypothyroidism, [id number] back pain, acute fall, postmenopausal, history of kyphoplasty, lumbar compression fracture, thoracic vertebral fracture, deconditioning, debility, impaired mobility, and self-care deficit. PAST MEDICAL HISTORY: Significant for thyroid problems, chronic back pain, and menopause. PAST SURGICAL HISTORY: None. ALLERGIES: No known drug allergies. CURRENT MEDICATIONS: Include Synthroid 25 mcg daily. She is on hydrochlorothiazide 12.5 mg daily, [place] 5/325 one tab q.4 hours p.r.n., Zofran ODT 4 mg q.6 hours p.r.n., clonidine 0.1 mg b.i.d., and MiraLax 17 g in 8 ounces of water daily. HABITS: No current alcohol or tobacco use. FAMILY HISTORY: Noncontributory. SOCIAL HISTORY: The patient hopes to return back home and get back to her prior level of functioning. HISTORY AND PHYSICAL [id number] NIKKI MADRID REVIEW OF SYSTEMS: GENERAL: Does complain of weakness and fatigue. HEENT: Denies cold, cough, or congestion. CARDIOVASCULAR: Denies any chest pain. PHYSICAL EXAMINATION: VITAL SIGNS: Stable, afebrile. GENERAL: A very thin, frail female in no acute distress, alert upon exam. HEENT: Normocephalic and atraumatic. Mucosa moist. NECK: Supple. No lymphadenopathy. LUNGS: Clear at this time with no wheeze, rhonchi, or rales. HEART: Regular rate and rhythm. She is somewhat bradycardic. ABDOMEN: Benign, nontender, nondistended. EXTREMITIES: No clubbing, cyanosis or edema. NEUROLOGIC: He does have noted proximal muscle weakness. LABORATORY DATA: Her white count is 5000, H&H of 10.6 and 33.1, and platelet count is 200. Her sodium is 142, potassium 3.7, BUN and creatinine of 18 and 0.5, and blood sugar is noted to be 101. ASSESSMENT: This is an 88-year-old female patient admitted to rehab with a working diagnosis of nontraumatic spinal cord injury. The patient has potential to make improvement. We instituted the following multidisciplinary therapies include, but not limited to physical, occupational, respiratory, speech, nutritional services, prosthetics and orthotics. Given her complex medical condition and risk for more complications, rehabilitation services cannot be provided at a low level of care such as [facility] facility. PLAN: 1. Admit to Rehab for intensive inpatient therapy to include the following disciplines: A. Physical therapy to improve gait, all transfer skills and bed mobility to a modified independent level. B. Occupational therapy to improve activities of daily living to a modified independent level. C. Case management to assist with discharge planning and placement options. D. Nutrition to assist with nutritional needs. E. Rehabilitation nursing to assist in monitoring the patient's underlying medical conditions and to assist with any type of bowel or bladder management. 2. The patient's current medication and medical care will be continued. 3. The patient will be placed on standard fall precautions. 4. The patient's estimated length of stay is approximately 7-10 days. 5. Discussed with patient during care team staff meeting this week. We will go ahead and continue to monitor her pain and treat appropriately. TRANSINT:[id number] Voice Confirmation ID: [id number] DOCUMENT ID: [id number] 11/21/2018 Edited for jenna COSBY. HARJEET notes whether there has been none or any medical/functional change since admission: - No change since preadmission screen. HISTORY AND PHYSICAL [id number] NIKKI MADRID attests patient continues to be appropriate for IRF: - Continues to be appropriate. BARBARA LOMBARDO MD at 0958 CC: [id number] DICTATION DATE: 11/16/18 0831 MODEL AND MOLD MAKER PLASTER: 11/16/18 0909 ADM IN [place] [id number] [place] [id number]
--- NOTE | 2018-11-27 12:31 | NUR ---
SITTING UP IN WC EATING LUNCH. KEEPS WANTING TO GO BACK TO BED AND HAS TO BE ENCOURAGED TO SIT UP. SHE SPENDS MOST OF HER TIME IN BED WATCHING TV AT HER CHOICE. CALL LIGHT IN REACH
--- NOTE | 2018-11-27 13:44 | NUR ---
Nutrition Follow Up Reviewed chart Pt gone to therapy Regular diet with 50% average po intake BM yesterday 50% intake may be adequate considering pt age and size-Will add Ensure daily to supplement if needed RD following
[2018-11-27 19:00] VITALS: BP 150/61
--- NOTE | 2018-11-27 19:25 | NUR ---
GREETED PATIENT AND INTRODUCED MYSELF HER NURSE FOR THE EVENING. PATIENT IS LAYING IN BED AND DENIES ANY NEEDS AT THIS TIME. CALL LIGHT IN REACH.
--- NOTE | 2018-11-27 20:56 | NUR ---
PATIENT CLEANED OF INCONTINENT URINE. COMPLETE LINEN CHANGE. PATIENT REPOSITIONED FOR COMFORT. CALL LIGHT IN REACH.
[2018-11-28 08:00] VITALS: BP 154/74
--- NOTE | 2018-11-28 14:01 | NUR ---
LAYING IN BED WATCHING TV. DENIES NEEDS OR C/O. INCONT OF URINE. CALL LIGHT IN REACH
--- NOTE | 2018-11-28 18:08 | NUR ---
LAYING IN BED WATCHING TV. DENIES NEEDS. IS [place] AND INCONT. CALL LIGHT IN REACH
[2018-11-28 19:00] VITALS: BP 124/56
--- NOTE | 2018-11-28 19:23 | NUR ---
PATIENT APPEARS TO BE SLEEPING. HER BED IS DOWN LOW WITH SIDE RAILS UP X2. CALL LIGHT IS IN REACH.
--- NOTE | 2018-11-29 00:05 | NUR ---
PATIENT IS SLEEPING. BED IS DOWN LOW WITH SIDE RAILS UP X2. CALL LIGHT IS IN REACH.
--- NOTE | 2018-11-29 04:07 | NUR ---
PATIENT IS SLEEPING. BED IS DOWN LOW WITH SIDE RAILS UP X2. CALL LIGHT IS IN REACH.
--- NOTE | 2018-11-29 08:00 | NUR ---
SHIFT ASSMT COMPLETED.DENIES NEEDS.
[2018-11-29 08:06] LABS: CALC OSMOLALITY 273 mosm/kg (275-300); CALCIUM 8.4 mg/dL (8.5-10.1); CARBON DIOXIDE 30.8 mmol/L (21.0-32.0); CHLORIDE - SERUM 100 mmol/L (98-107); CREATININE - SERUM 0.4 mg/dL (0.6-1.3); GLUCOSE 95 mg/dL (74-106); SODIUM 137 mmol/L (136-145); UREA NITROGEN 13 mg/dL (7-18); eGFR NON AFRICAN AMERICAN > 90 mL/min (90-120)
[2018-11-29 08:07] LABS: BASOPHILS 0.4 % (0-2); HEMATOCRIT 33.3 % (36.0-48.0); HEMOGLOBIN 10.7 g/dL (12-16); IMMATURE GRANULOCYTES 0.2 % (0-5); LYMPHOCYTES 32.4 % (15-50); MCH 27.3 pg (26.0-34.0); MCHC 32.1 g/dL (31.0-37.0); MCV 84.9 fL (80.0-100.0); MEAN PLATELET VOLUME 10.1 fL (7.4-10.4); MONOCYTES 12.9 % (2-11); NEUTROPHILS 53.1 % (40-80); PLATELET COUNT 206 10x3/uL (130-400); RBC 3.92 10x6/uL (4.00-5.40); RDW 14.5 % (11.5-14.5); WBC 5.2 10x3/uL (4.8-10.8)
[2018-11-29 08:26] LABS: POTASSIUM - SERUM 2.8 mmol/L (3.5-5.1)
[2018-11-29 14:04] VITALS: BP 140/51
[2018-11-29 19:00] VITALS: BP 124/67
--- NOTE | 2018-11-29 19:20 | NUR ---
PATIENT IS RESTING IN HER BED. SHE DENIES ANY NEEDS. BED IS DOWN LOW WITH SIDE RAILS UP X2. CALL LIGHT IS IN REACH.
--- NOTE | 2018-11-30 00:04 | NUR ---
PATIENT IS SLEEPING. BED IS DOWN LOW WITH SIDE RAILS UP X2. CALL LIGHT IS IN REACH.
--- NOTE | 2018-11-30 04:05 | NUR ---
PATIENT IS SLEEPING. BED IS DOWN LOW WITH SIDE RAILS UP X2. CALL LIGHT IS IN REACH.
[2018-11-30 07:00] LABS: CALCIUM 8.4 mg/dL (8.5-10.1); CARBON DIOXIDE 31.5 mmol/L (21.0-32.0); CHLORIDE - SERUM 101 mmol/L (98-107); GLUCOSE 93 mg/dL (74-106); SODIUM 139 mmol/L (136-145)
[2018-11-30 07:03] LABS: CALC OSMOLALITY 280 mosm/kg (275-300); UREA NITROGEN 20 mg/dL (7-18)
[2018-11-30 07:04] LABS: CREATININE - SERUM 0.6 mg/dL (0.6-1.3); POTASSIUM - SERUM 3.9 mmol/L (3.5-5.1); eGFR NON AFRICAN AMERICAN > 90 mL/min (90-120)
--- NOTE | 2018-11-30 08:00 | NUR ---
BREAKFAST GIVEN.CL IN REACH.PLAN FOR DC HOME TODAY.
[2018-11-30] MEDS ORDERED: HYDROCODON-ACE1 EAC7 PO (08:36)
[2018-11-30] MEDS ORDERED: FEXOFENADINE HC60 MG PO (08:36)
[2018-11-30] MEDS ORDERED: HCTZ25 MG PO (08:36)
--- NOTE | 2018-11-30 10:31 | NUR ---
PATIENT DISCHARGING HOME TODAY WITH FAMILY. PATIENT HAS DECLINED HOME HEALTH AND ANY DME NEEDS. DR. NGUYEN 12/15/18 @ 2:30, DR. BARRAZA 12/18/18 @ 3:30. PATIENT CHOICE FORM AND [facility] FORMS SIGNED, COPY GIVEN TO PATIENT, AND FILED IN CHART. DISCHARGE INSTRUCTIONS WITH FIM DATA FAXED TO PCP AND REVIEWED WITH PATIENT.
--- NOTE | 2018-11-30 13:15 | NUR ---
REVIEWED MEDS;RX GIVEN.DC'D STABLE CONDITION WITH BROTHER.
== END 2018-11-30 13:15 | disposition home or self-care (01) | DRG 552 ==
LOC: D.REHAB 14:45
PROVIDERS: ADMIT Emergency Medicine; ATTEND Emergency Medicine
DX: M47.9 Spondylosis, unspecified (principal); N39.0 Urinary tract infection, site not specified; M48.56XD Collapsed vertebra, not elsewhere classified, lumbar region, subsequent encounter for fracture with routine healing; M48.54XD Collapsed vertebra, not elsewhere classified, thoracic region, subsequent encounter for fracture with routine healing; E03.9 Hypothyroidism, unspecified; E86.0 Dehydration; R53.81 Other malaise; R32 Unspecified urinary incontinence; R15.9 Full incontinence of feces; G89.29 Other chronic pain; G72.9 Myopathy, unspecified; M85.80 Other specified disorders of bone density and structure, unspecified site; R01.1 Cardiac murmur, unspecified